=== PATIENT | female | born 1965 | race Two or more races ===

== ENCOUNTER 2018-07-14 08:20 | Emergency (ER) | payer SELFPAY ==
[2018-07-14 09:00] LABS: Absolute Lymphocytes (CBC) 1.7 K/uL (0.7-4.9); Absolute Monocytes 0.5 K/uL (0.1-1.3); Absolute Neutrophil 2.7 K/uL (1.8-8.0); Basophils % 0.8 % (0-1.3); Eosinophils % 7.8 % (0-4.4); Hematocrit 44.1 % (36.0-45.0); Lymphocytes % 31.8 % (15.3-44.8); MCV 90.2 fL (80-100); MPV 8.3 fL (7.6-11.3); Monocytes % 9.2 % (3.3-12.3); RBC Red Blood Cell Count 4.89 M/uL (3.86-4.86)
[2018-07-14 09:09] LABS: ALT/SGPT 22 U/L (12-78); AST/SGOT 12 U/L (15-37); Albumin 3.7 g/dL (3.4-5.0); Alkaline Phosphatase 88 U/L (45-117); BUN Blood Urea Nitrogen 7 mg/dL (7-18); Bicarbonate 28 mmol/L (21-32); Bilirubin Direct 0.1 mg/dL (0-0.2); Bilirubin Total 0.4 mg/dL (0.2-1.0); Glucose Level 126 mg/dL (74-106); Lipase 101 U/L (73-393); Potassium 3.9 mmol/L (3.5-5.1); Protein, Total 7.5 g/dL (6.4-8.2); Sodium Level 140 mmol/L (136-145)
--- NOTE | 2018-07-14 09:57 | RAD REPORT ---
EXAM DESCRIPTION: CTAbdomen Pelvis W Contrast - 07/14/2018 9:40 am CLINICAL HISTORY: Abdominal pain. ABD PAIN COMPARISON: No comparisons TECHNIQUE: Biphasic CT imaging of the abdomen and pelvis was performed with 100 ml non-ionic IV cont rast. All CT scans are performed using dose optimization technique as appropriate and may include automated exposure control or mA/KV adjustment according to patient size. FINDINGS: The lung bases are clear. The liver demonstrates no aggressive mass or biliary dilatation. Two small abutting cysts are present in the posterior right lobe measuring 14 mm in totality. The spleen, pancreas, adrenal glands and ki dneys are within normal limits. Benign appearing left renal cysts are present. No bowel obstruction, free air, free fluid or abscess. The appendix is normal. No evidence of signi ficant lymphadenopathy. Prominent lower lumbar spondylosis. IMPRESSION: No acute intra-abdominal or pelvic finding.
[2018-07-14] MEDS ORDERED: KETOROLAC 30 MG/ML INJ ONE (10:45)
[2018-07-14 11:41] LABS: Urine Bacteria NONE SEEN /HPF (<20); Urine Culture Reflex Order NOT NEEDED; Urine RBC NONE SEEN /HPF (NONE SEEN)
--- NOTE | 2018-07-14 11:47 | EDPHYS ---
Physician Documentation [facility] Name: Beba Griffin Age: 53 yrs Sex: Female : 1965 Arrival Date: 07/14/2018 Time: 08:21 Bed 5 Private MD: None, None ED Physician Michael Cross HPI: 07/14 09:10 This 53 yrs old Female presents to ER via Wheelchair with complaints of Abdominal Pain. pm1 09:10 The patient presents with abdominal pain in the lower abdomen. pm1 09:10 Onset: The symptoms/episode began/occurred 3 month(s) ago, and became worse 1 week(s) pm1 ago. The symptoms do not radiate. Associated signs and symptoms: Pertinent positives: Left lower back pain, Pertinent negatives: nausea, vomiting, and diarrhea, chest pain, dysuria, fever, headache, shortness of breath. Modifying factors: The symptoms are alleviated by nothing, the symptoms are aggravated by nothing. The patient has not recently seen a physician, and does not have an established primary care provider. 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 - Social history:: Smoking status: Patient/guardian denies using tobacco. - Ebola Screening: : No symptoms or risks identified at this time. ROS: 09:10 Constitutional: Negative for fever, chills, and weight loss, Eyes: Negative for injury, pm1 pain, redness, and discharge, ENT: Negative for injury, pain, and discharge, Neck: Negative for injury, pain, and swelling, Cardiovascular: Negative for chest pain, palpitations, and edema, Respiratory: Negative for shortness of breath, cough, wheezing, and pleuritic chest pain. 09:10 : Negative for injury, bleeding, discharge, and swelling, MS/Extremity: Negative for injury and deformity, Skin: Negative for injury, rash, and discoloration, Neuro: Negative for headache, weakness, numbness, tingling, and seizure. 09:10 Abdomen/GI: Positive for abdominal pain, Negative for nausea, vomiting, and diarrhea. 09:10 Back: Positive for of the left low back, Pain, Negative for decreased range of motion. Exam: 09:10 Constitutional: This is a well developed, well nourished patient who is awake, alert, pm1 and in no acute distress. Head/Face: Normocephalic, atraumatic. Eyes: Pupils equal round and reactive to light, extra-ocular motions intact. Lids and lashes normal. Conjunctiva and sclera are non-icteric and not injected. Cornea within normal limits. Periorbital areas with no swelling, redness, or edema. ENT: Nares patent. No nasal discharge, no septal abnormalities noted. Tympanic membranes are normal and external auditory canals are clear. Oropharynx with no redness, swelling, or masses, exudates, or evidence of obstruction, uvula midline. Mucous membranes moist. Neck: Trachea midline, no thyromegaly or masses palpated, and no cervical lymphadenopathy. Supple, full range of motion without nuchal rigidity, or vertebral point tenderness. No Meningismus. Chest/axilla: Normal chest wall appearance and motion. Nontender with no deformity. No lesions are appreciated. Cardiovascular: Regular rate and rhythm with a normal S1 and S2. No gallops, murmurs, or rubs. Normal PMI, no JVD. No pulse deficits. Respiratory: Lungs have equal breath sounds bilaterally, clear to auscultation and percussion. No rales, rhonchi or wheezes noted. No increased work of breathing, no retractions or nasal flaring. 09:10 Back: No spinal tenderness. No costovertebral tenderness. Full range of motion. Skin: Warm, dry with normal turgor. Normal color with no rashes, no lesions, and no evidence of cellulitis. MS/ Extremity: Pulses equal, no cyanosis. Neurovascular intact. Full, normal range of motion. 09:10 Abdomen/GI: Inspection: abdomen appears normal, Bowel sounds: normal, Palpation: soft, in all quadrants, mild abdominal tenderness, in the suprapubic area. 09:10 Neuro: Orientation: is normal, Mentation: appropriate for stated age, Motor: moves all fours. Vital Signs: 08:28 BP 162 / 98; Pulse 64; Resp 19; Temp 97.6; Pulse Ox 96% ; Pain 8/10; sv 09:18 BP 162 / 82; Pulse 58; Resp 18; Pulse Ox 97% ; sv 09:54 BP 161 / 75; Pulse 57; Resp 18; Pulse Ox 99% ; sv 10:45 BP 166 / 84; Pulse 52; Resp 16; Pulse Ox 98% ; sv 11:22 BP 172 / 99; Pulse 76; Resp 16; Pulse Ox 97% ; sv MDM: 08:28 Patient medically screened. pm1 11:46 Data reviewed: vital signs. Data interpreted: Pulse oximetry: on room air is 97 %. pm1 Interpretation: normal. Counseling: I had a detailed discussion with the patient and/or guardian regarding: the historical points, exam findings, and any diagnostic results supporting the discharge/admit diagnosis, lab results, radiology results, the need for outpatient follow up, to return to the emergency department if symptoms worsen or persist or if there are any questions or concerns that arise at home. 07/14 08:34 Order name: Basic Metabolic Panel; Complete Time: 09:15 pm07/14 08:34 Order name: CBC with Diff; Complete Time: 09:15 pm07/14 08:34 Order name: Hepatic Function; Complete Time: 09:15 pm07/14 08:34 Order name: Lipase; Complete Time: 09:15 pm07/14 10:38 Order name: Urine Microscopic Only; Complete Time: 11:46 pm07/14 10:51 Order name: Urine Dipstick--Ancillary (enter results) bd 07/14 08:34 Order name: IV Saline Lock; Complete Time: 08:44 pm1 07/14 08:34 Order name: Labs collected and sent; Complete Time: 08:44 pm1 07/14 08:34 Order name: CT Abd/Pelvis - W/Contrast: IV contrast only; Complete Time: 10:07 pm1 07/14 08:34 Order name: Urine Dipstick-Ancillary (obtain specimen); Complete Time: 08:35 pm1 07/14 08:34 Order name: Urine Test (obtain specimen); Complete Time: 08:35 pm1 Administered Medications: 10:43 Drug: TORadol 30 mg Route: IVP; Site: right antecubital; sv 11:00 Follow up: Response: No adverse reaction sv Disposition: 17:35 Co-signature as Attending Physician, Michael Cross MD. rn Disposition: 07/14/18 11:46 Discharged to Home. Impression: Unspecified abdominal pain. - Condition is Stable. - Discharge Instructions: Abdominal Pain, Adult. - Prescriptions for Bentyl 20 mg Oral Tablet - take 1 tablet by ORAL route every 6 hours As needed; 20 tablet. - Medication Reconciliation Form, Thank You Letter, Antibiotic Education, Prescription Opioid Use form. - Follow up: Emergency Department; When: As needed; Reason: Worsening of condition. Follow up: Private Physician; When: 2 - 3 days; Reason: Recheck today's complaints, Continuance of care, Re-evaluation by your physician. - Problem is new. - Symptoms have improved. Signatures: Dispatcher [employer] Marta Estrada, RN RN Michael Zhang MD MD rn Marinas, Patrick, JS DIRT SUPERVISOR pm1 Beata Jimenez RN RN hb Corrections: (The following items were deleted from the chart) 12:46 11:46 07/14/2018 11:46 Discharged to Home. Impression: Unspecified abdominal pain. hb Condition is Stable. Discharge Instructions: Abdominal Pain, Adult. Prescriptions for Bentyl 20 mg Oral Tablet - take 1 tablet by ORAL route every 6 hours As needed; 20 tablet. and Forms are Medication Reconciliation Form, Thank You Letter, Antibiotic Education, Prescription Opioid Use. Follow up: Emergency Department; When: As needed; Reason: Worsening of condition. Follow up: Private Physician; When: 2 - 3 days; Reason: Recheck today's complaints, Continuance of care, Re-evaluation by your physician. Problem is new. Symptoms have improved. pm1
--- NOTE | 2018-07-14 11:47 | ER ---
Nurse's Notes [facility] Name: Beba Griffin Age: 53 yrs Sex: Female : 1965 Arrival Date: 07/14/2018 Time: 08:21 Bed 5 Private MD: None, None Diagnosis: Unspecified abdominal pain Presentation: 07/14 08:28 Presenting complaint: Patient states: Lower abdominal pain x 1 month, pain radiates to hb left low back x 1 week. Transition of care: patient was not received from another setting of care. Onset of symptoms was July 14, 2018. Risk Assessment: Do you want to hurt yourself or someone else? Patient reports no desire to harm self or others. Care prior to arrival: None. 08:28 Method Of Arrival: Wheelchair hb 08:28 Acuity: PALLAVI 3 hb 08:32 Initial Sepsis Screen: Does the patient meet any 2 criteria? No. Patient's initial sv sepsis screen is negative. Does the patient have a suspected source of infection? No. Patient's initial sepsis screen is negative. Triage Assessment: 08:30 General: Appears in no apparent distress. uncomfortable, Behavior is calm, cooperative, sv appropriate for age. Pain: Complains of pain in suprapubic area, right lower quadrant and left lower quadrant Pain radiates to left low back Pain currently is 8 out of 10 on a pain scale. Pain began "months ago". EENT: No signs and/or symptoms were reported regarding the EENT system. Neuro: Level of Consciousness is awake, alert, obeys commands, Oriented to person, place, time, situation, Moves all extremities. Full function Gait is steady, Speech is normal. Respiratory: Respiratory effort is even, unlabored, Respiratory pattern is regular, symmetrical. GI: Abdomen is flat, Reports lower abdominal pain. : Denies burning with urination. Derm: Skin is pink, warm \\T\\ dry. Musculoskeletal: No signs and/or symptoms reported regarding the musculoskeletal system. 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 - Social history:: Smoking status: Patient/guardian denies using tobacco. - Ebola Screening: : No symptoms or risks identified at this time. Screenin:28 Abuse screen: Denies threats or abuse. Denies injuries from another. Nutritional sv screening: No deficits noted. Tuberculosis screening: No symptoms or risk factors identified. Fall Risk None identified. Assessment: 09:45 Reassessment: Patient appears in no apparent distress at this time. No changes from sv previously documented assessment. Patient and/or family updated on plan of care and expected duration. Pain level reassessed. Patient is alert, oriented x 3, equal unlabored respirations, skin warm/dry/pink. 10:45 Reassessment: Patient appears in no apparent distress at this time. No changes from sv previously documented assessment. Patient and/or family updated on plan of care and expected duration. Pain level reassessed. Patient is alert, oriented x 3, equal unlabored respirations, skin warm/dry/pink. Vital Signs: 08:28 BP 162 / 98; Pulse 64; Resp 19; Temp 97.6; Pulse Ox 96% ; Pain 8/10; sv 09:18 BP 162 / 82; Pulse 58; Resp 18; Pulse Ox 97% ; sv 09:54 BP 161 / 75; Pulse 57; Resp 18; Pulse Ox 99% ; sv 10:45 BP 166 / 84; Pulse 52; Resp 16; Pulse Ox 98% ; sv 11:22 BP 172 / 99; Pulse 76; Resp 16; Pulse Ox 97% ; sv ED Course: 08:21 Patient arrived in ED. sb2 08:21 None, None is Private Physician. sb2 08:24 Bobby Tracy NP is PHCP. pm1 08:24 Michael Cross MD is Attending Physician. pm1 08:28 Marta Ken, MEENAKSHI is Primary Nurse. sv 08:28 Arm band placed on right wrist. sv 08:28 Patient has correct armband on for positive identification. Placed in gown. Bed in low sv position. Adult w/ patient. Pulse ox on. NIBP on. Door closed. Head of bed elevated. 08:29 Triage completed. hb 08:39 Initial lab(s) drawn, by me, sent to lab. Inserted saline lock: 20 gauge in right dh3 antecubital area, using aseptic technique. Blood collected. 09:[address] Scan. sv 09:[address] via wheelchair. sj 09:40 CT Abd/Pelvis - W/Contrast: IV contrast only In Process Unspecified. EDMS 09:[address]. sv 09:46 Inserted saline lock: 22 gauge in left ,using aseptic technique. done by Annette in [place]. sv 10:42 Urine collected: clean catch specimen, clear. dh3 12:45 No provider procedures requiring assistance completed. IV discontinued, intact, hb bleeding controlled, No redness/swelling at site. Pressure dressing applied. Administered Medications: 10:43 Drug: TORadol 30 mg Route: IVP; Site: right antecubital; sv 11:00 Follow up: Response: No adverse reaction sv Outcome: 11:46 Discharge ordered by . pm1 12:45 Discharged to home ambulatory. hb 12:45 Condition: stable 12:45 Discharge instructions given to patient, Instructed on discharge instructions, follow up and referral plans. medication usage, Demonstrated understanding of instructions, follow-up care, medications, Prescriptions given X 1. 12:46 Patient left the ED. Signatures: Dispatcher [employer] EDDC Marta Ken RN RN Annette Eubanks Bobby Tracy, PURCHASING COORDINATOR PURCHASING COORDINATOR pm1 Beata Jimenez RN RN Lainey De Anda 3 Melina Jeffers sb2 Corrections: (The following items were deleted from the chart) 08:32 08:30 Pain: Complains of pain in suprapubic area, right lower quadrant and left lower sv quadrant Pain currently is 8 out of 10 on a pain scale. sv
[2018-07-14 12:49] LABS: Urine Blood NEGATIVE (NEG); Urine Glucose NEGATIVE (NEG); Urine Protein NEGATIVE (NEG)
== END 2018-07-14 12:46 | disposition home or self-care (01) ==
LOC: ER 08:20
DX: R10.30 Lower abdominal pain, unspecified (principal)
CPT/HCPCS: 36415; 74177; 80048; 80076; 81003; 81015; 83690; 85025; Q9967

== ENCOUNTER 2019-09-04 00:31 | Emergency (ER) | payer SELFPAY ==
--- OUTSIDE RECORDS SUMMARY | 2019-09-04 00:33 | XMS REPORT | Summary of Care ---
:1965 Author Organization [facility] Address [address] [place] [id number] Care Team Providers Name Role Phone Pcp, Patient Does Not Have A Primary Care Provider Reason for Visit Reason Comments Anxiety Suicidal ideation Auth/Cert Status Reason Specialty Diagnoses / Referred By Referred To Procedures Contact Contact [facility] [address] [place] [address] [place] [address] Encounter Details Date Type Department Care Team Description 06/01/2019 Emergency [facility]Emergency Radha Garcia, CLINICAL TEAM LEAD [address] [place] [address]. [place] [id number] Situational mixed Department Ta Wilkinson DO [address] [place] [address]. [address] [place], [place] [id number] anxiety and depressive [address] disorder (Primary Dx) [place], [place] [id number] Allergies No Known Allergiesdocumented as of this encounter (statuses as of 06/01/2019) Medications Medication Sig Dispensed Refills Start Date End Date Status traMADOL (ULTRAM) 50 Take 1 tablet by 20 tablet 0 07/13/2018 Active mg tablet mouth every 6 (six) hours as needed for Pain (scale 7-10). ondansetron (ZOFRAN) Take 1 tablet by 12 tablet 0 07/13/2018 Active 4 mg tablet mouth every 8 (eight) hours as needed for Nausea and Vomiting (N/V). SERTraline 25 mg Take 1 tablet by 30 tablet 0 03/28/2019 Active tabletIndications: mouth daily. Suicidal ideation hydrOXYzine 50 mg Take 1 tablet by 20 tablet 0 03/28/2019 Active tabletIndications: mouth every 6 Suicidal ideation (six) hours as needed for Anxiety. SERTRALINE 50 MG 1 Tab Oral DAILY 28 0 09/16/2005 Suspended ORAL TAB TRAZODONE 50 MG ORAL 1 Tab Oral at 30 0 09/16/2005 Suspended TAB bedtime as needed for insomnia documented as of this encounter (statuses as of 06/01/2019) Active Problems Problem Noted Date Major depressive disorder, recurrent episode, moderate 09/16/2005 Cocaine dependence, episodic 09/16/2005 documented as of this encounter (statuses as of 06/01/2019) Social History Tobacco Use Types Packs/Day Years Used Date Never Assessed Sex Assigned at Date Recorded Not on file Job Start Date Occupation Industry Not on file Not on file Not on file Travel History Travel Start Travel End No recent travel history available. documented as of this encounter Last Filed Vital Signs Vital Sign Reading Time Taken Comments Blood Pressure 138/96 06/01/2019 2:13 PM CDT Pulse 85 06/01/2019 2:13 PM CDT Temperature 37.1 C (98.7 F) 06/01/2019 3:14 PM CDT Respiratory Rate 18 06/01/2019 3:14 PM CDT Oxygen Saturation 97% 06/01/2019 3:14 PM CDT Inhaled Oxygen Concentration - - Weight 77.1 kg (170 lb) 06/01/2019 2:13 PM CDT Height 167.6 cm (5' 6") 06/01/2019 2:13 PM CDT Body Mass Index 27.44 06/01/2019 2:13 PM CDT documented in this encounter Discharge Instructions Ta Norton DO - 06/01/2019 DIAGNOSIS Diagnoses that have been ruled out: None Diagnoses that are still under consideration: None Final diagnoses: Situational mixed anxiety and depressive disorder NO LIFE-THREATENING FINDINGS ON TODAY'S EXAM. PROCEDURES IN THE ER TODAY: No orders of the defined types were placed in this encounter. MEDICATIONS ADMINISTERED IN THE ER TODAY AND DISCHARGE MEDICATIONS: No orders of the defined types were placed in this encounter. FOLLOW-UP RECOMMENDATIONS: RECOMMEND FOLLOW-UP WITH A PRIMARY CARE PROVIDER OR SPECIALIST IN 2-5 DAYS, ESPECIALLY IF NO IMPROVEMENT IN SYMPTOMS. MAY FOLLOW-UP WITH A PROVIDER OF YOUR CHOICE, SUCH : 1. A PHYSICIAN OF YOUR CHOICE 2. [facility], . LOCATIONS IN [facility] 3. [facility], [address], [place]; [phone] OR, IF YOU WISH TO FOLLOW-UP WITHIN THE [facility], MAY TRY THESE OPTIONS (CLINIC APPOINTMENTS AVAILABLE ON [id number] BASIS): 1. SCHEDULE AN APPOINTMENT ONLINE AT [email or web address] 2. OR CALL THE [facility] AT OR 3. OR CALL YOUR [facility] PHYSICIAN'S OFFICE DIRECTLY IF YOU ARE ALREADY AN ESTABLISHED [facility] PATIENT. RETURN TO ER FOR WORSENING OF SYMPTOMS. AttachmentsThe following attachments cannot be sent through Care Everywhere.Anxiety, Your Body's Response to (Wallisian)documented in this encounter Plan of Treatment Health Maintenance Due Date Last Done Comments HEPATITIS C (HCV) SCREEN 1965 DTaP,Tdap,and Td Vaccines (1 - 1982 Tdap) PAP SMEAR 1984 MAMMOGRAM 2003 COLONOSCOPY 2013 Zoster Recombinant Vaccine 2013 (SHINGRIX) (1 of 2) INFLUENZA VACCINE 06/19/2019 PNEUMOCOCCAL 0-64 YEARS COMBINED Aged Out No longer eligible based on SERIES patient's age to complete this topic documented as of this encounter Procedures Procedure Name Priority Date/Time Associated Diagnosis Comments NOTICE OF PRIVACY Routine 06/01/2019 1:54 PM CDT PRACTICES NOTICE OF PRIVACY Routine 06/01/2019 1:54 PM CDT PRACTICES CONSENT/REFUSAL FOR Routine 06/01/2019 1:53 PM CDT DIAGNOSIS AND TREATMENT documented in this encounter Results Not on filedocumented in this encounter Visit Diagnoses Diagnosis Situational mixed anxiety and depressive disorder - Primary Adjustment disorder with mixed anxiety and depressed mood documented in this encounter
--- OUTSIDE RECORDS SUMMARY | 2019-09-04 00:33 | XMS REPORT ---
:1965 [facility] Address [address] [place] [address] Care Team Providers Name Role Phone Unavailable Unavailable Unavailable Problems This patient has no known problems. Allergies, Adverse Reactions, Alerts This patient has no known allergies or adverse reactions. Medications This patient has no known medications.
[2019-09-04 01:07] LABS: Absolute Lymphocytes (CBC) 1.5 K/uL (0.7-4.9); Basophils % 0.7 % (0-1.3); Hematocrit 38.6 % (36.0-45.0); Lymphocytes % 26.8 % (15.3-44.8); MPV 7.9 fL (7.6-11.3); RBC Red Blood Cell Count 4.17 M/uL (3.86-4.86)
[2019-09-04 01:24] LABS: BUN Blood Urea Nitrogen 9 mg/dL (7-18); Bicarbonate 25 mmol/L (21-32); Glucose Level 139 mg/dL (74-106); Potassium 3.7 mmol/L (3.5-5.1); Sodium Level 141 mmol/L (136-145); Troponin (Emerg Dept Use Only) < 0.02 ng/mL (0.0-0.045)
--- NOTE | 2019-09-04 02:04 | ER ---
Nurse's Notes [facility] Name: Beba Griffin Age: 54 yrs Sex: Female : 1965 Arrival Date: 09/04/2019 Time: 00:33 Bed 3 Private MD: Diagnosis: Adverse effect of unspecified psychostimulants Presentation: 09/04 00:27 Presenting complaint: Patient states: Pt was having an anxiety attack after smoking jb4 crack. Pt reportedly smokes on a weekly to a daily basis. 00:27 Transition of care: patient was not received from another setting of care. Onset of jb4 symptoms was September 04, 2019. Risk Assessment: Do you want to hurt yourself or someone else? Patient reports no desire to harm self or others. Initial Sepsis Screen: Does the patient meet any 2 criteria? HR > 90 bpm. Yes Does the patient have a suspected source of infection? No. Patient's initial sepsis screen is negative. Care prior to arrival: None. 00:27 Method Of Arrival: EMS: [facility] jb4 00:27 Acuity: PALLAVI 2 jb4 Historical: - Allergies: 00:27 No Known Allergies; jb4 - Home Meds: 00:27 Hydroxyzine Oral [Active]; Trazodone Oral [Active]; jb4 - PMHx: 00:27 Bipolar disorder; Depression; jb4 - PSHx: 00:27 ; jb4 - Immunization history:: Adult Immunizations up to date. - Social history:: Smoking status: Patient uses tobacco products, Patient uses alcohol, occasionally. street drugs, cocaine, marijuana. - Family history:: not pertinent. - Ebola Screening: : No symptoms or risks identified at this time. - Hospitalizations: : No recent hospitalization is reported. Screenin:43 Abuse screen: Denies threats or abuse. Nutritional screening: No deficits noted. jb4 Tuberculosis screening: No symptoms or risk factors identified. Fall Risk None identified. Assessment: 00:43 General: Appears in no apparent distress. comfortable, Behavior is calm, cooperative. jb4 Pain: Denies pain. Neuro: Level of Consciousness is awake, alert, obeys commands, Oriented to person, place, time, situation. Cardiovascular: Patient's skin is warm and dry. Respiratory: Airway is patent Respiratory effort is even, unlabored, Respiratory pattern is regular, symmetrical. GI: No deficits noted. No signs and/or symptoms were reported involving the gastrointestinal system. : No deficits noted. No signs and/or symptoms were reported regarding the genitourinary system. EENT: No deficits noted. No signs and/or symptoms were reported regarding the EENT system. Derm: Skin is intact, Skin is pink, warm \T\ dry. Musculoskeletal: Circulation, motion, and sensation intact. Range of motion: intact in all extremities. 01:30 Reassessment: Patient appears in no apparent distress at this time. Patient and/or jb4 family updated on plan of care and expected duration. Pain level reassessed. Patient is alert, oriented x 3, equal unlabored respirations, skin warm/dry/pink. 02:08 Reassessment: Patient appears in no apparent distress at this time. pt resting with ak1 eyes closed, resp even and unlabored. at bedside. 02:36 Reassessment: Patient appears in no apparent distress at this time. Patient and/or jb4 family updated on plan of care and expected duration. Pain level reassessed. Patient is alert, oriented x 3, equal unlabored respirations, skin warm/dry/pink. PT verbalized understanding of d/c and follow up instructions. Vital Signs: 00:27 BP 115 / 76; Pulse 94; Resp 18; Temp 99.1(O); Pulse Ox 96% on R/A; Weight 72.57 kg (R); jb4 Height 5 ft. 6 in. (167.64 cm) (R); Pain 0/10; 01:30 BP 98 / 64; Pulse 70; Resp 16; Pulse Ox 97% on R/A; jb4 02:08 BP 92 / 62; Pulse 72; Resp 16; Pulse Ox 96% on R/A; ak1 02:37 BP 110 / 57; Pulse 87; Resp 16; Pulse Ox 98% on R/A; jb4 00:27 Body Mass Index 25.82 (72.57 kg, 167.64 cm) jb4 ED Course: 00:27 Arm band placed on right wrist. jb4 00:33 Patient arrived in ED. ds1 00:33 Fady Aaron RN is Primary Nurse. jb4 00:35 Michael Cross MD is Attending Physician. rn 00:39 Triage completed. jb4 00:43 Patient has correct armband on for positive identification. Placed in gown. Bed in low jb4 position. Call light in reach. Side rails up X2. ekg monitor tech on. Pulse ox on. NIBP on. 00:55 XRAY Chest (1 view) In Process Unspecified. EDMS 02:37 No provider procedures requiring assistance completed. IV discontinued, intact, jb4 bleeding controlled, No redness/swelling at site. Pressure dressing applied. Administered Medications: No medications were administered Outcome: 02:03 Discharge ordered by . rn 02:37 Discharged to home via wheelchair, with family. jb4 02:37 Condition: stable 02:37 Discharge instructions given to patient, Instructed on discharge instructions, follow up and referral plans. Demonstrated understanding of instructions, follow-up care. 02:37 Patient left the ED. jb4 Signatures: Dispatcher [employer] EDME Avelina Reyes ds1 Michael Cross MD MD rn Krenek, Amber, RN RN ak1 Fady Aaron, RN RN jb4
--- NOTE | 2019-09-04 02:04 | EDPHYS ---
Physician Documentation [facility] Name: Beba Griffin Age: 54 yrs Sex: Female : 1965 Arrival Date: 09/04/2019 Time: 00:33 Bed 3 Private MD: ED Physician Michael Cross HPI: 09/04 00:38 This 54 yrs old Female presents to ER via Unassigned with complaints of Overdose, rn Anxiety. 00:39 The patient presents with a history of heart racing. Onset: The symptoms/episode rn began/occurred just prior to arrival. Duration: The patient or guardian reports a single episode. Modifying factors: The symptoms are aggravated by substance abuse The symptoms are alleviated by ativan. Severity of symptoms: At their worst the symptoms were moderate in the emergency department the symptoms have resolved. The patient has not experienced similar symptoms in the past. Reports smoking crack [employer], felt instant palpitations, anxiety, denies this happening before with crack, is chronic user in addition to meth and marijuana in past. Denies other drugs. Denies chest pain/sob. Given ativan 2mg with resolution of symptoms. . Historical: - Allergies: 00:27 No Known Allergies; jb4 - Home Meds: 00:27 Hydroxyzine Oral [Active]; Trazodone Oral [Active]; jb4 - PMHx: 00:27 Bipolar disorder; Depression; jb4 - PSHx: 00:27 ; jb4 - Immunization history:: Adult Immunizations up to date. - Social history:: Smoking status: Patient uses tobacco products, Patient uses alcohol, occasionally. street drugs, cocaine, marijuana. - Family history:: not pertinent. - Ebola Screening: : No symptoms or risks identified at this time. - Hospitalizations: : No recent hospitalization is reported. ROS: 00:39 Constitutional: Negative for fever, chills, and weight loss, Eyes: Negative for injury, rn pain, redness, and discharge, Neck: Negative for injury, pain, and swelling, Cardiovascular: Negative for chest pain, and edema, Respiratory: Negative for shortness of breath, cough, wheezing, and pleuritic chest pain, Abdomen/GI: Negative for abdominal pain, nausea, vomiting, diarrhea, and constipation, MS/Extremity: Negative for injury and deformity, Skin: Negative for injury, rash, and discoloration, Neuro: Negative for headache, weakness, numbness, tingling, and seizure. Exam: 00:39 Constitutional: This is a well developed, well nourished patient who is awake, alert, rn and in no acute distress. Scratching at arms. Head/Face: Normocephalic, atraumatic. Eyes: Pupils equal round and reactive to light, extra-ocular motions intact. Lids and lashes normal. Conjunctiva and sclera are non-icteric and not injected. Cornea within normal limits. Periorbital areas with no swelling, redness, or edema. ENT: dry MM Cardiovascular: Regular rate and rhythm. No pulse deficits. Respiratory: No increased work of breathing, no retractions or nasal flaring. Abdomen/GI: soft, non-tender Skin: Warm, dry, and no evidence of cellulitis. MS/ Extremity: Pulses equal, no cyanosis. Neurovascular intact. Full, normal range of motion. Equal circumference. Neuro: Awake and alert, GCS 15, oriented to person, place, time, and situation. Cranial nerves II-XII grossly intact. Motor strength 5/5 in all extremities. Sensory grossly intact. Cerebellar exam normal. 01:36 ECG was reviewed by the Attending Physician. rn Vital Signs: 00:27 BP 115 / 76; Pulse 94; Resp 18; Temp 99.1(O); Pulse Ox 96% on R/A; Weight 72.57 kg (R); jb4 Height 5 ft. 6 in. (167.64 cm) (R); Pain 0/10; 01:30 BP 98 / 64; Pulse 70; Resp 16; Pulse Ox 97% on R/A; jb4 02:08 BP 92 / 62; Pulse 72; Resp 16; Pulse Ox 96% on R/A; ak1 02:37 BP 110 / 57; Pulse 87; Resp 16; Pulse Ox 98% on R/A; jb4 00:27 Body Mass Index 25.82 (72.57 kg, 167.64 cm) jb4 MDM: 00:36 Patient medically screened. rn 02:01 Differential diagnosis: arrythmia, dehydration, stress disorder, drug adverse effect. rn Data reviewed: vital signs, nurses notes, lab test result(s), EKG, radiologic studies, plain films, and as a result, I will discharge patient. Test interpretation: by ED physician or midlevel provider: ECG, plain radiologic studies, CXR neg for acute infiltrate/pneumothorax. Counseling: I had a detailed discussion with the patient and/or guardian regarding: the historical points, exam findings, and any diagnostic results supporting the discharge/admit diagnosis, lab results, radiology results, the need for outpatient follow up, to return to the emergency department if symptoms worsen or persist or if there are any questions or concerns that arise at home. Response to treatment: the patient's symptoms have markedly improved after treatment, the patient's condition has returned to base line, the patient is now symptom free, patient is well hydrated. and as a result, I will discharge patient. Special discussion: I discussed with the patient/guardian in detail that at this point there is no indication for admission to the hospital. It is understood, however, that if the symptoms persist or worsen the patient needs to return immediately for re-evaluation. 02:01 ED course: Counseled regarding drug cessation and pcp f/u. . rn 09/04 00:37 Order name: CBC with Diff; Complete Time: rn 09/04 00:37 Order name: Basic Metabolic Panel; Complete Time: rn 09/04 00:37 Order name: IV Start; Complete Time: 00:50 rn 09/04 00:37 Order name: EKG; Complete Time: 00:38 rn 09/04 00:37 Order name: Troponin (emerg Dept Use Only); Complete Time: rn 09/04 00:37 Order name: XRAY Chest (1 view) rn 09/04 00:37 Order name: EKG - Nurse/Tech; Complete Time: : rn EC:36 Rate is 86 beats/min. Rhythm is regular. QRS [place] is Normal. MS interval is normal. QRS rn interval is normal. QT interval is normal. No Q waves. T waves are Normal. No ST changes noted. Clinical impression: Normal ECG. Interpreted by me. Reviewed by me. Administered Medications: No medications were administered Disposition: 09/04/19 02:03 Discharged to Home. Impression: Adverse effect of unspecified psychostimulants. - Condition is Stable. - Discharge Instructions: Stimulant Use Disorder-Cocaine, Stimulant Use Disorder-Methamphetamines. - Medication Reconciliation Form, Thank You Letter, Antibiotic Education, Prescription Opioid Use form. - Follow up: Private Physician; When: As needed; Reason: Recheck today's complaints, Re-evaluation by your physician. - Problem is new. - Symptoms have improved. Signatures: Dispatcher [employer] EDMichael Griffin MD MD rn Bryson, James, RN RN jb4 Corrections: (The following items were deleted from the chart) 02:37 02:03 09/04/2019 02:03 Discharged to Home. Impression: Adverse effect of unspecified jb4 psychostimulants. Condition is Stable. Forms are Medication Reconciliation Form, Thank You Letter, Antibiotic Education, Prescription Opioid Use. Follow up: Private Physician; When: As needed; Reason: Recheck today's complaints, Re-evaluation by your physician. Problem is new. Symptoms have improved. rn
[2019-09-04 02:44] VITALS: BP 110/57; O2SAT 98
--- NOTE | 2019-09-04 08:11 | RAD REPORT ---
EXAM DESCRIPTION: RAD - Chest Single View - 09/04/2019 12:56 am CLINICAL HISTORY: Palpitations COMPARISON: None. TECHNIQUE: AP portable chest image was obtained 0053 hours . FINDINGS: Lungs are clear. Heart and vasculature are normal. No measurable pleural effusion and no p neumothorax. No acute bony abnormality seen. No acute aortic findings suspected. IMPRESSION: No acute cardiopulmonary process.
--- NOTE | 2019-09-04 10:01 | EKG ---
Test Date: 2019-09-04 Test Time: 00:56:57 Manager Medical Writing: DARYL MEASUREMENT RESULTS: Intervals: Rate: 86 UT: 176 QRSD: 80 QT: 402 QTc: 481 [place]: P: 22 UT: 176 QRS: -13 T: 7 INTERPRETIVE STATEMENTS: Normal sinus rhythm Normal ECG No previous ECG available for comparison Electronically Signed On 09-04-19 10:00:44 RADIOLOGY SPECIAL PROCEDURE TECH by Corbin Marquis
== END 2019-09-04 02:37 | disposition home or self-care (01) ==
LOC: ER 00:31
DX: F15.980 Other stimulant use, unspecified with stimulant-induced anxiety disorder (principal); T40.5X5A Adverse effect of cocaine, initial encounter; Y92.9 Unspecified place or not applicable; F32.9 Major depressive disorder, single episode, unspecified
CPT/HCPCS: 36415; 71045; 80048; 84484; 85025; 93005; 99284

== ENCOUNTER → 2023-11-12 | Emergency (ER) | payer SELFPAY ==
[~2023-11-12] MED LIST: FLUORESCEIN SODIUM 1 MG/WRAP ONE; HYDROCODONE/APAP 10/325 TAB ONE; TETRACAINE HCL 0.5% 4ML OPTH ONE
--- OUTSIDE RECORDS SUMMARY | 2023-11-12 12:03 | XMS REPORT | Continuity of Care Document ---
Author Name Unknown Address [address] [facility] [address] [place] [address] [facility] Address [address] [facility] [address] [place] [address] Care Team Providers Care Javascript Web Developer Name Role Phone None, None Primary Care Physician [phone] CLARI BORJA Attending Clinician Unavailable ANNE MULLINS Attending Clinician Unavailable PER LUU Attending Clinician Unava ilable Vi Mosley Attending Clinician BEATRIZ ARGUELLO Attending Clinician Unavailable Beatriz Fairchild Attending Clinician [phone] PRISCILA JASMINE Attending Clinician Unavailable Priscila Jasmine MD Attending Clinician [phone] Radha Gongora Attending Clinician [phone] Ta Wilkinson DO Attending Clinician [phone] Vi Mosley Admitting Clinician BEATRIZ ARGUELLO Admitting Clinician Unavailable Payers Payer Name Policy Type Policy Number Effective Date Expirati on Date Source MEDICAID SSI PENDING PENDING 2022 00:00:00 Problems Condition Name Condition Details Condition Category Status Onset Date Resolution Date Last Treatment Date Treating Clinician Comments Source AUTO PED AUTO PED Active 02/03/2023 [facility] Diagnosis Active 02-03 00:00: 00 2023-08-14 16:51:00 Carlyn Espinal LIFE FLIGHT LIFE FLIGHT Active 02/03/2023 [facility] Diagnosis Active 02-03 00:00: 00 2023-08-20 11:15:00 Carlyn Espinal Major depressive disorder, recurrent episode, moderate Major depressive disorder, recurrent episode, moderate Disease Active 2004-10 00:00: 00 [facility] Cocaine dependence , episodic Cocaine dependence , episodic Disease Active 2004-10 00:00: 00 [facility] Nondepende nt cannabis abuse, episodic (disorder) Nondepende nt cannabis abuse, episodic (disorder) Active Problem 02/13/2023 [facility] Problem Active 2023-02-13 04:44:43 Carlyn Espinal UNSPECIFIE D MULTIPLE INJURIES, INITIAL E UNSPECIFIE D MULTIPLE INJURIES, INITIAL E Active [facility] Diagnosis Active 2023-08-14 16:51:00 Carlyn Espinal Allergies, Adverse Reactions, Alerts Allergy Name Allergy Type Status Severity Reaction(s) Onset Date Inactive Date Treating Clinician Comments Source No Known Medicati on Allergie s No Known Medicati on Allergie s Active Carlyn Espinal NO KNOWN ALLERGIE S Drug Class Active [facility] Social History Social Habit Start Date Stop Date Quantity Comments Source History of tobacco use Cigarette Smoker [facility] Exposure to SARS-CoV-2 (event) 2023-02-23 00:00:00 2023-03-05 11:23:00 Not sure [facility] Cigarettes smoked current (pack per day) - Reported 2023-03-05 00:00:00 2023-03-05 00:00:00 [facility] Tobacco use and exposure 2023-03-05 00:00:00 2023-03-05 00:00:00 Smokeless tobacco non-user [facility] Alcohol intake 2023-03-05 00:00:00 2023-03-05 00:00:00 Lifetime non-drinker (finding) [facility] Sex Assigned At 1965 00:00:00 1965 00:00:00 [facility] Smoking Status Start Date Stop Date Source Tobacco smoking status 2023-02-04 11:38:00 [facility] Tobacco smoking consumption unknown [facility] Medications Ordered Medication Name Filled Medication Name Start Date Stop Date Current Medication? Ordering Clinician Indication Dosage Frequency Signature (SIG) Comments Components Source citalopram 20 mg oral tablet 02-10 20:27: 00 Yes 20 mg = 1 tab, PO, Daily, # 30 tab, 0 Refill(s), Pharmacy: [facility] [id number], 167.64, cm, 02/04/23 6:33:00 CDT, Height, 65.6, kg, 02/04/23 6:33:00 CDT, Weight Memoria sara Tedyd docusate-se nna 50 mg-8.6 mg oral tablet 02-10 20:27: 00 Yes 1 tab, PO, Daily, X 14 day, # 14 tab, 0 Refill(s), Pharmacy: [facility] [id number], 167.64, cm, 02/04/23 6:33:00 CDT, Height, 65.6, kg, 02/04/23 6:33:00 CDT, Weight Memoria sara Espinal enoxaparin 30 mg/0.3 mL subcutaneou s solution 02-10 20:27: 00 Yes /= 30 mL/min), # 28 stick, 0 Refill(s), Pharmacy: [facility] [id number], 167.64, cm, 02/04/23 6:33:00 CDT, Height, 65.6, kg, 02/04/23 6:33:00 CDT, Weight Memoria sara Espinal gabapentin 300 mg oral capsule 02-10 20:27: 00 Yes 300 mg = 1 cap, PO, Q8H-06, # 42 cap, 0 Refill(s), Pharmacy: [facility] [id number], 167.64, cm, 02/04/23 6:33:00 CDT, Height, 65.6, kg, 02/04/23 6:33:00 CDT, Weight [facility] l [facility] lidocaine 4% topical film 02-10 20:27: 00 Yes 1 patch, TOP, Daily, do not leave patch on for more than 8 hours at a time, X 14 day, # 14 patch, 0 Refill(s), Pharmacy: [facility] [id number], 167.64, cm, 02/04/23 6:33:00 CDT, Height, 65.6, kg, 02/04/23 6:33:00 CDT, Weight Memoria sara Espinal methocarbam ol 500 mg oral tablet 02-10 20:27: 00 Yes 1,000 mg = 2 tab, PO, Q6H, X 14 day, # 112 tab, 0 Refill(s), Pharmacy: [facility] [id number], 167.64, cm, 02/04/23 6:33:00 CDT, Height, 65.6, kg, 02/04/23 6:33:00 CDT, Weight [facility] [place] tramadol 50 mg oral tablet 02-10 20:27: 00 Yes 50 mg = 1 tab, PO, Q8H, PRN Pain Score 7-10, not to exceed 400 mg/day, X 7 day, # 28 tab, 0 Refill(s), Pharmacy: [facility] [id number], 167.64, cm, 02/04/23 6:33:00 CDT, Height, 65.6, kg, 02/04/23 6:33:00 CDT, Weight Memoria sara Espinal acetaminoph en 500 mg oral tablet. 02-10 20:27: 00 Yes 1 gm = 2 tab, PO, Q6H, not to exceed 4000 mg/day, X 14 day, # 112 tab, 0 Refill(s), Pharmacy: [facility] [id number], 167.64, cm, 02/04/23 6:33:00 CDT, Height, 65.6, kg, 02/04/23 6:33:00 CDT, Weight Memoria sara Espinal bisacodyl 02-08 13:01: 00 No Notes: (Same As: Dulcolax, Bisco-Lax) Memoria sara Espinal hydrALAZINE 02-08 11:16: 00 Yes Notes: (Same as: Apresoline ) Push over 5 minutes [facility] [place] melatonin 02-08 02:00: 00 Yes Notes: (Same as: Melatonin) Carlyn Espinal guaiFENesin 02-07 14:00: 00 Yes Notes: ( Carlyn Espinal melatonin 02-07 13:01: 00 No 6 mg, Route: PO, Bedtime, Dosing Weight 65.6, kg, PRN Sleep, Start date: 02/07/23 8:01:00 CDT, Duration: 30 day, Stop date: 03/09/23 8:00:00 CDT Carlyn Espinal DuoNeb inhalation solution 02-07 13:00: 00 Yes Notes: (Same as: Duoneb) Carlyn Espinal gabapentin 02-07 11:00: 00 Yes Notes: (Same as: Neurontin) Carlyn Espinal hydrOXYzine 02-06 14:00: 00 No 25 mg, Route: PO, Drug form: TAB, Daily, Dosing Weight 65.6, kg, Start date: 02/06/23 9:00:00 CDT, Duration: 30 day, Stop date: 03/07/23 9:00:00 CDT, Pediatric Dosing Carlyn Espinal remove patch 02-06 14:00: 00 Yes Notes: Remove old patch before applicatio n of new patch. WASTE: F/P - P Waste Black; E - P Waste Black Carlyn Espinal citalopram 02-06 14:00: 00 Yes Notes: (Same As: CeleXA) Carlyn Salinasann oxyCODONE immediate release 02-06 13:30: 00 Yes Notes: (Same as: Roxicodone ) Carlyn Espinal potassium phosphate 02-06 11:10: 00 No Notes: (Same as: K Phosphate) Infuse over 4 hour. Do not infuse phosphorou s concurrent ly in the same line as TPN or IVF that contains calcium. For double lumen central lines, phosphorou s may be infused in a separate lumen from TPN. Jakubjoce sara Espinal tramadol 02-05 17:22: 00 No Notes: Not to exceed 400mg/day. (Same As: Ultram) Jakubjoce sara [place] dronabinol 02-05 17:00: 00 Yes Notes: (Same as: Marinol) Carlyn Espinal hydrOXYzine 02-05 17:00: 00 Yes Notes: (Same as: Vistaril) Carlyn Espinal nicotine 02-05 17:00: 00 Yes Notes: Patch is applied daily to clean, dry, hairless, intact skin on trunk or upper outer arm. Starting dose 10 or less cigarettes /day. Remove old patch before applicatio n of new patch. (Same as Jenni Sewell WASTE: F/P - P Waste Black; E - P Waste Black Carlyn Espinal docusate-se nna 50 mg-8.6 mg oral tablet 02-05 14:00: 00 Yes Notes: (Same as Senokot-S) Equiv. to Anna-Col[place] e. Carlyn Espinal MiraLax 02-05 14:00: 00 Yes Notes: Dissolve in 8 oz of water or juice. (Same as: Miralax) Carlyn Espinal lidocaine topical 02-05 14:00: 00 Yes Notes: Patch is applied to intact skin to cover painful area for up to 12 hours in a 24-hour period (12 hours on and 12 hours off). Please indicate the location of applicatio n site. Site 1: Remove old patch before applicatio n of new patch. (Same as Aspercreme Lidocaine Patch) Carlyn Espinal enoxaparin 02-05 14:00: 00 Yes Notes: (Same as: Lovenox) Carlyn Espinal sodium phosphate 02-05 12:24: 00 No Notes: Infuse over 4 hour. Do not infuse phosphorou s concurrent ly in the same line as TPN or IVF that contains calcium. For double lumen central lines, phosphorou s may be infused in a separate lumen from TPN. Carlyn Espinal ceFAZolin (SCIP) + sterile water 20 mL 02-05 01:00: 00 No Notes: (Same As: AncefVegafzol) MEDICATION WASTE Product Size: 2000 mg Product Wasted: ___ mg Carlyn Espinal Robaxin 02-04 23:00: 00 Yes Notes: (Same as:Robaxin ) Memjoce Espinal tramadol 02-04 23:00: 00 No Notes: Not to exceed 400mg/day. (Same As: Ultram) Memjoce Espinal sugammadex (ANES) 02-04 19:12: 00 No Route: IV, Drug form: SOLN, ONCE, Stop date: 02/04/23 14:12:00 CDT Memjoce Espinal ondansetron (ANES) 02-04 19:04: 00 No Route: IV, Drug form: INJ, ONCE, Stop date: 02/04/23 14:04:00 CDT Memjoce Espinal hydromorpho ne (ANES) 02-04 18:28: 00 No Route: IV, Drug form: INJ, ONCE, Stop date: 02/04/23 13:28:00 CDT Jakubjoce Espinal remove patch 02-04 18:00: 00 Yes Notes: Remove patch 12 hours after applicatio n each day. Memjoce Espinal acetaminoph en (ANES) 02-04 17:43: 00 No Route: IV, Drug form: INJ, ONCE, Stop date: 02/04/23 12:43:00 CDT Memjoce Espinal ketAMINE (ANES) 02-04 17:43: 00 No Route: IV, Drug form: INJ, ONCE, Stop date: 02/04/23 12:43:00 CDT Memjoce Salinasann ANES oxyCODONE 5 mg immediate release tablet 02-04 17:21: 00 No Notes: (Same as: Roxicodone ) Memoria sara Teddy ANES HYDROmorpho ne 02-04 17:21: 00 No Notes: Same as Dilaudid Memoria sara MICHAEL flumazenil 02-04 17:21: 00 No Notes: (Same as: Romazicon) Memoria sara Teddy ANES naloxone 02-04 17:21: 00 No Notes: Same as Narcan Memjoce ruiz Teddy ANES ondansetron 02-04 17:21: 00 No Notes: (Same as: Zofran) MEDICATION WASTE Product Size: 4 mg Product Wasted: ___ mg Carlyn MICHAEL methocarbam ol + Sodium Chloride 0.9% IV 100 mL 02-04 17:21: 00 No Notes: (Same as:Robaxin ) Carlyn Espinal ePHEDrine (ANES) 02-04 15:50: 00 No Route: IV, Drug form: INJ, ONCE, Stop date: 02/04/23 10:50:00 CDT Memjoce Espinal lidocaine (ANES) 02-04 15:39: 00 No Route: IV, Drug form: INJ, ONCE, Stop date: 02/04/23 10:39:00 CDT Memjoec Espinal propofol (ANES) 02-04 15:39: 00 No Route: IV, Drug form: INJ, ONCE, Stop date: 02/04/23 10:39:00 CDT Memjoce Espinal rocuronium (ANES) 02-04 15:39: 00 No Route: IV, Drug form: INJ, ONCE, Stop date: 02/04/23 10:39:00 CDT Memjoce Espinal fentaNYL (ANES) 02-04 15:39: 00 No Route: IV, Drug form: INJ, ONCE, Stop date: 02/04/23 10:39:00 CDT Carlyn Espinal dexamethaso ne (ANES) 02-04 15:39: 00 No Route: IV, Drug form: INJ, ONCE, Stop date: 02/04/23 10:39:00 CDT Memjoce Espinal phenylephri ne (ANES) 02-04 15:39: 00 No Route: IV, Drug form: INJ, ONCE, Stop date: 02/04/23 10:39:00 CDT Memjoce Espinal ceFAZolin (ANES) 02-04 15:34: 00 No Route: IV, Drug form: INJ, ONCE, Stop date: 02/04/23 10:34:00 CDT Memjoce Espinal norepinephr ine (ANES) 10 microgram 02-04 15:28: 00 No Route: IV, Drug form: INJ, Start date: 02/04/23 10:28:00 CDT, Stop date: 02/04/23 11:28:00 CDT Carlyn Espinal midazolam (ANES) 02-04 15:09: 00 No Route: IV, Drug form: SOLN, ONCE, Stop date: 02/04/23 10:09:00 CDT Carlyn Espinal Lactated Ringers Injection IV (ANES) 1000 mL 02-04 14:36: 00 No Route: IV, Total Volume: 1,000, Start date: 02/04/23 9:36:00 CDT, Stop date: 02/04/23 10:36:00 CDT Carlyn Espinal bacitracin topical 02-04 14:00: 00 Yes 1 appl, Route: TOP, Daily, Drug form: OINT, Priority: Stat, Start date: 02/04/23 9:00:00 CDT, Duration: 30 day, Stop date: 03/05/23 9:00:00 CDT, 0 Carlyn Espinal enoxaparin 02-04 02:00: 00 No 30 mg, Route: SUB-Q, ONCE, Dosing Weight 68.182, kg, Start date: 02/03/23 21:00:00 CDT, Stop date: 02/03/23 21:00:00 CDT Carlyn Espinal morphine Sulfate 02-03 23:45: 00 No 4 mg, Route: IVP, ONCE, Dosing Weight 68.182, kg, Priority: STAT, Start date: 02/03/23 18:45:00 CDT, Stop date: 02/03/23 18:45:00 CDT Carlyn Espinal lidocaine 4% topical film 02-03 23:00: 00 No Notes: Patch is applied to intact skin to cover painful area for up to 12 hours in a 24-hour period (12 hours on and 12 hours off). Please indicate the location of applicatio n site. Site 1: Remove old patch before applicatio n of new patch. (Same as Aspercreme Lidocaine Patch) Carlyn Espinal Dextrose 50% Syringe (D50W) 02-03 22:48: 00 Yes 12.5 gm, 25 mL, Route: IVP, Drug Form: INJ, Dosing Weight 68.182, kg, PRN, PRN Blood Glucose Results, Start date: 02/03/23 17:48:00 CDT, Duration: 30 day, Stop date: 03/05/23 17:47:00 CDT, 0 Carlyn Espinal glucagon 02-03 22:48: 00 Yes 1 mg, Route: IM, Drug form: PDR/INJ, PRN, Dosing Weight 68.182, kg, PRN Blood Glucose Results, Start date: 02/03/23 17:48:00 CDT, Duration: 30 day, Stop date: 03/05/23 17:47:00 CDT, 0 Carlyn Salinasann acetaminoph en 02-03 22:45: 00 Yes Notes: Max acetaminop hen 4000 mg/day (4 gm/day). (Same as: Tylenol Extra Strength) Carlyn sara Espinal gabapentin 02-03 22:45: 00 No Notes: (Same as: Neurontin) Carlyn Salinasann tramadol 02-03 22:45: 00 No Notes: Not to exceed 400mg/day. (Same As: Ultram) Carlyn Salinasann Lactated Ringers IV 1,000 mL 02-03 22:38: 00 No 1,000 mL, Rate: 50 ml/hr, Infuse over: 20 hr, Route: IV, Dosing Weight 68.182 kg, Total Volume: 1,000, Start date: 02/03/23 17:38:00 CDT, Duration: 30 day, Stop date: 03/05/23 17:37:00 CDT, BSA: 1.8 m2, 0 Jakubjoce Salinasann morphine Sulfate 02-03 19:52: 00 No 4 mg, Route: IVP, ONCE, Dosing Weight 68.182, kg, Priority: STAT, Start date: 02/03/23 14:52:00 CDT, Stop date: 02/03/23 14:52:00 CDT Jakubjoce sara Espinal Omnipaque 350 mg/mL 02-03 19:23: 00 No 100 mL, Route: IVP, Drug Form: SOLN, Dosing Weight 68.182, kg, ONCALL, STAT, Start date: 02/03/23 14:23:00 CDT, Duration: 1 doses or times, Dose = 2.2ml/kg, Max dose = 100ml -- "To be infused by Radiology Staff ONLY" Carlyn Espinal Saline Flush 0.9% 02-03 18:58: 00 Yes Notes: Same as: BD Posiflush Sterile Carlyn Espinal HYDROcodone -acetaminop hen (NORCO 5) 5-325 mg tablet 1 tablet 07-03 18:15: 00 07-03 18:02 :00 No 1{tbl} 1 tablet, Oral, ONCE, 1 dose, On Thu07/03/22 at 1315, ARIS [facility] HYDROcodone -acetaminop hen (NORCO) 10-325 mg tablet 1 tablet 06-24 16:15: 00 06-24 16:44 :00 No 1{tbl} 1 tablet, Oral, ONCE, 1 dose, On Thu06/24/22 at 1115, Routine [facility] acetaminoph en-codeine (Tylenol w/ Codeine #3) 300-30 MG tablet 06-24 00:00: 00 Yes 1{tbl} Take 1 tablet by mouth. [facility] acetaminoph en-codeine 300-30 mg tablet 06-24 00:00: 00 Yes [id number] 1{tbl} Take 1 tablet by mouth every 4 (four) hours as needed for Pain (scale 4-6). Indication s: acute pain [facility] acetaminoph en-codeine 300-30 mg tablet 06-24 00:00: 00 Yes [id number] 1{tbl} Take 1 tablet by mouth every 4 (four) hours as needed for Pain (scale 4-6). Indication s: acute pain [facility] hydrOXYzine 50 mg tablet 6-10 00:00: 00 Yes [id number] 50mg Take 1 tablet by mouth every 6 (six) hours as needed for Anxiety. [facility] SERTraline 25 mg tablet 03-28 00:00: 00 Yes [id number] 25mg Take 1 tablet by mouth daily. [facility] hydrOXYzine 50 mg tablet 03-28 00:00: 00 Yes [id number] 50mg Take 1 tablet by mouth every 6 (six) hours as needed for Anxiety. [facility] SERTraline 25 mg tablet 03-28 00:00: 00 Yes [id number] 25mg Take 1 tablet by mouth daily. [facility] hydrOXYzine 50 mg tablet 03-28 00:00: 00 Yes [id number] 50mg Take 1 tablet by mouth every 6 (six) hours as needed for Anxiety. [facility] SERTraline 25 mg tablet 03-28 00:00: 00 Yes [id number] 25mg Take 1 tablet by mouth daily. [facility] hydrOXYzine 50 mg tablet 03-28 00:00: 00 Yes [id number] 50mg Take 1 tablet by mouth every 6 (six) hours as needed for Anxiety. [facility] SERTraline 25 mg tablet 03-28 00:00: 00 Yes [id number] 25mg Take 1 tablet by mouth daily. [facility] ondansetron (ZOFRAN) 4 mg tablet 07-13 00:00: 00 Yes 4mg Take 1 tablet by mouth every 8 (eight) hours as needed for Nausea and Vomiting (N/V). [facility] traMADOL (ULTRAM) 50 mg tablet 07-13 00:00: 00 Yes 50mg Take 1 tablet by mouth every 6 (six) hours as needed for Pain (scale 7-10). [facility] ondansetron (ZOFRAN) 4 mg tablet 07-13 00:00: 00 Yes 4mg Take 1 tablet by mouth every 8 (eight) hours as needed for Nausea and Vomiting (N/V). [facility] traMADOL (ULTRAM) 50 mg tablet 07-13 00:00: 00 Yes 50mg Take 1 tablet by mouth every 6 (six) hours as needed for Pain (scale 7-10). [facility] mg tablet 07-13 00:00: 00 Yes 4mg Take 1 tablet by mouth every 8 (eight) hours as needed for Nausea and Vomiting (N/V). [facility]AM[facility] 50 mg tablet 07-13 00:00: 00 Yes 50mg Take 1 tablet by mouth every 6 (six) hours as needed for Pain (scale 7-10). [facility]AN) 4 mg tablet 07-13 00:00: 00 Yes 4mg Take 1 tablet by mouth every 8 (eight) hours as needed for Nausea and Vomiting (N/V). [facility]AM[facility] 50 mg tablet 07-13 00:00: 00 Yes 50mg Take 1 tablet by mouth every 6 (six) hours as needed for Pain (scale 7-10). [facility] SERTRALINE 50 MG ORAL TAB 2004-10 00:00: 00 Yes 1 Tab Oral DAILY [facility] TRAZODONE 50 MG ORAL TAB 2004-10 00:00: 00 Yes 1 Tab Oral at bedtime as needed for insomnia [facility] ORAL TAB 2004-10 00:00: 00 Yes 1 Tab Oral DAILY [facility] TRAZODONE 50 MG ORAL TAB 2004-10 00:00: 00 Yes 1 Tab Oral at bedtime as needed for insomnia [facility] SERTRALINE 50 MG ORAL TAB 2004-10 00:00: 00 Yes 1 Tab Oral DAILY [facility] TRAZODONE 50 MG ORAL TAB 2004-10 00:00: 00 Yes 1 Tab Oral at bedtime as needed for insomnia [facility] SERTRALINE 50 MG ORAL TAB 2004-10 00:00: 00 Yes 1 Tab Oral DAILY [facility] TRAZODONE 50 MG ORAL TAB 2004-10 00:00: 00 Yes 1 Tab Oral at bedtime as needed for insomnia [facility] Vital Signs Vital Name Observation Time Observation Value Comments S ource Systolic blood pressure 2023-03-05 16:28:00 158 mm[Hg] [facility] Diastolic blood pressure 2023-03-05 16:28:00 79 mm[Hg] [facility] Heart rate 2023-03-05 16:28:00 68 /min [facility] Body temperature 2023-03-05 16:28:00 36.67 Nisa [facility] Body height 2023-03-05 16:28:00 [facility] weight 2023-03-05 16:28:00 [facility]772 [facility] BMI 2023-03-05 16:28:00 [facility]05 [facility] Di[facility] pressure 2022-07-03 17:30:00 78 mm[Hg] [facility] Heart rate 2022-07-03 17:30:00 86 /min [facility] Body temperature 2022-07-03 17:30:00 37 Nisa [facility] Respiratory rate 2022-07-03 17:30:00 16 /min [facility] Oxygen saturation in Arterial blood by Pulse oximetry 2022-07-03 17:30:00 98 /min [facility] Systolic blood pressure 2022-07-03 17:30:00 130 mm[Hg] [facility] Body height 2022-07-03 15:01:00 167.6 cm [facility] Body weight 2022-07-03 15:01:00 72.576 kg [facility] BMI 2022-07-03 15:01:00 25.82 kg/m2 [facility] Systolic blood pressure 2022-06-24 17:38:32 128 mm[Hg] [facility] Diastolic blood pressure 2022-06-24 17:38:32 72 mm[Hg] [facility] Heart rate 2022-06-24 17:38:32 65 /min [facility] Respiratory rate 2022-06-24 17:38:32 17 /min [facility] Oxygen saturation in Arterial blood by Pulse oximetry 2022-06-24 17:38:32 98 /min [facility] Body temperature 2022-06-24 14:31:00 37.44 Nisa [facility] Body height 2022-06-24 14:31:[address] [facility] 2022-06-24 14:31:00 72.576 kg [facility] BMI 2022-06-24 14:31:00 25.82 kg/m2 [facility] Systolic blood pressure 2022-03-24 23:50:00 110 mm[Hg] [facility] Diastolic blood pressure 2022-03-24 23:50:00 73 mm[Hg] [facility] Heart rate 2022-03-24 23:50:00 97 /min [facility] Body temperature 2022-03-24 23:50:00 35.67 Nisa [facility] Respiratory rate 2022-03-24 23:50:00 18 /min [facility] Body height 2022-03-24 23:50:00 167.6 cm [facility] Body weight 2022-03-24 23:50:00 68.04 kg [facility] BMI 2022-03-24 23:50:00 24.21 kg/m2 [facility] Oxygen saturation in Arterial blood by Pulse oximetry 2022-03-24 23:50:00 95 /min [facility] Body temperature 2019-06-01 20:14:00 37.06 Nisa [facility] Respiratory rate 2019-06-01 20:14:00 18 /min [facility] Oxygen saturation in Arterial blood by Pulse oximetry 2019-06-01 20:14:00 97 /min [facility] Systolic blood pressure 2019-06-01 19:13:00 138 mm[Hg] [facility] Diastolic blood pressure 2019-06-01 19:13:00 96 mm[Hg] [facility] Heart rate 2019-06-01 19:13:00 85 /min [facility] Body height 2019-06-01 19:13:[address] Body weight 2019-06-01 19:13:00 77.111 kg [facility] BMI 2019-06-01 19:13:00 27.44 kg/m2 [facility] Heart Rate 2023-02-10 21:13:07 [facility] [place] Systolic (mm Hg) 2023-02-10 21:12:55 [facility] [place] Diastolic (mm Hg) 2023-02-10 21:12:55 [facility] Temperature Oral (F) 2023-02-10 21:12:41 98.1 F [facility] [place] Height 2023-02-09 19:26:00 5 [ft_i] [facility] [place] Weight 2023-02-09 19:26:00 [facility] Heart Rate 2023-02-09 08:32:11 [facility] [place] Respitory Rate 2023-02-09 08:32:11 [facility] Temperature Oral (F) 2023-02-09 08:31:58 97.7 F [facility] [place] Systolic (mm Hg) 2023-02-09 08:31:43 [facility] Diastolic (mm Hg) 2023-02-09 08:31:43 [facility] [place] Heart Rate 2023-02-09 08:31:43 [facility] [place] Heart Rate 2023-02-09 04:22:45 [facility] Respitory Rate 2023-02-09 04:22:45 [facility] [place] Systolic (mm Hg) 2023-02-09 04:22:16 [facility] Diastolic (mm Hg) 2023-02-09 04:22:16 [facility] Temperature Oral (F) 2023-02-09 04:22:00 98.1 F [facility] Respitory Rate 2023-02-09 02:21:00 [facility] [place] Temperature Oral (F) 2023-02-09 01:12:58 98 F [facility] [place] Systolic (mm Hg) 2023-02-09 01:12:49 [facility] [place] Diastolic (mm Hg) 2023-02-09 01:12:49 [facility] [place] Temperature Oral (F) 2023-02-07 00:11:56 98.9 F [facility] [place] Height 2023-02-04 11:33:00 167.64 cm [facility] [place] Weight 2023-02-04 11:33:00 [facility] [place] BMI Calculated 2023-02-04 11:33:00 [facility] Height 2023-02-03 19:09:00 167.64 cm [facility] BMI Calculated 2023-02-03 19:09:00 M omar Espinal Weight 2023-02-03 19:09:00 [facility] [place] Procedures Procedure Date / Time Performed Performing Clinician Source Closed treatment of posterior pelvic ring fracture(s), dislocation(s), diastasis or subluxation of the ilium, sacroiliac joint, and/or sacrum, with or without anterior pelvic ring fracture(s) and/or dislocation(s) of the pubic symphysis and/or superior/in 2023-02-04 16:52:00 [facility] CT HIP RIGHT WO CONTRAST 2022-07-03 16:00:39 Beatriz Arguello [facility] CONSENT/REFUSAL FOR DIAGNOSIS AND TREATMENT 2022-07-03 14:55:25 Doctor Unassigned, [place] [facility] XR HIPS 2 VW RIGHT 2022-06-24 15:47:44 Beatriz Arguello [facility] XR PELVIS <3 VW 2022-06-24 15:47:44 Beatriz Arguello [facility] NOTICE OF PRIVACY PRACTICES 2019-06-01 18:54:45 Doctor Unassigned, [place] [facility] NOTICE OF PRIVACY PRACTICES 2019-06-01 18:54:44 Doctor Unassigned, [place] [facility] CONSENT/REFUSAL FOR DIAGNOSIS AND TREATMENT 2019-06-01 18:53:15 Doctor Unassigned, [place] [facility] Encounters Start Date/Time End Date/Time Encounter Type Admission Type Attending Clinicians Care Facility Care Department Encounter ID Source 2023-04-09 16:35:01 Outpatient [facility] [id number] [facility] 2023-04-07 12:24:54 Outpatient [facility] [id number] [facility] 2023-03-05 11:22:22 Outpatient [facility] [id number] [facility] 2023-02-27 10:22:34 Outpatient [facility] [id number] [facility] 2023-03-17 15:00:00 2023-03-17 15:00:00 Outpatient CLARI BORJA [facility] [id number] [facility] 2023-03-17 12:30:00 2023-03-17 12:30:00 Outpatient ANNE MULLINS [facility] [id number] [facility] 2023-03-05 13:50:00 2023-03-05 13:50:00 Office Visit PER LUU [facility] [address] [id number] [facility] 2023-02-03 19:07:00 2023-02-10 22:56:00 Inpatient [facility] [id number] [address] [place] [address] 2023-02-03 14:07:00 2023-02-10 17:56:00 Outpatient Vi Mosley [facility] [id number] 2023-02-04 05:00:00 2023-02-04 05:00:00 Outpatient ANNE MULLINS [facility] [id number] [facility] 2023-02-03 14:07:00 2023-02-03 14:07:00 Outpatient Marco A Mosleylian Georges [facility] [id number] 2022-07-03 10:03:00 2022-07-03 13:12:00 Emergency X BEATRIZ ARGUELLO [facility] ERT [id number] [facility] 2022-07-03 10:03:00 2022-07-03 13:12:00 Emergency Beatriz Arguello [facility] .[id number] [id number] [facility] 2022-06-24 09:38:00 2022-06-24 12:40:00 Emergency X BEATRIZ ARGUELLO [facility] ERT [id number] [facility] 2022-06-24 09:38:00 2022-06-24 12:40:00 Emergency Arguello, Beatriz S [facility] [id number] [id number] [id number] [facility] 2022-03-24 18:54:00 2022-03-24 19:17:00 Emergency X PRISCILA JASMINE [facility] ERT [id number] [facility] 2022-03-24 18:54:00 2022-03-24 19:17:00 Emergency Priscila Jasmine [facility] [id number] [id number] [id number] [facility] 2019-06-01 14:17:22 2019-06-01 16:23:00 Emergency Radha Garcia [facility] [id number] [id number] [id number] [id number] [facility] Results Test Description Test Time Test Comments Results Result Co mments Source [place] 20971023-04-25 17:31:30* Test Item Value Reference Range Interpretation Comme nts RADRPT (test code = RADRPT) EXAM: XR LEFT HAND 3 VIEWSDATE: 02/10/2023 9:12INDICATION: - fx f/uCOMPARISON: February 03, 2023TECHNIQUE: PA, lateral and oblique radiographs of the handIMPRESSION: * Follow-up examination demonstrates no significant change in appearance of the minimally displaced left fifth metacarpal neck fracture.* Distal radial intra-articular fracture with minimal volar displacement of the distal fragment is unchanged* Overlying splint limits detail.* Diffuse soft tissue swelling is noted. [facility]2023-04-24 21:02:00* Test Item Value Reference Range Interpretation Comme nts Glucose POC (test code = Glucose POC) 113 70-99 [place] 154813-04-22 20:24:54* Test Item Value Reference Range Interpretation Comme nts RADRPT (test code = RADRPT) EXAM: XR PELVIS 1 VIEWDATE: 02/07/2023 14:43INDICATION: - Pt w/ known fx's, wants non-op. S/p ambulation.COMPARISON: February 03, 2023TECHNIQUE: Frontal pelvisIMPRESSION: * The previously identified right acetabular anterior wall fracture is not clearly evaluated, and demonstrates no significant displacement.* No new fractures identified* Limited evaluation of the sacrum and this tear pelvis.* Global pelvic alignment is satisfactory. [facility]dn[facility]BEZ[facility]YYJ6546-98-22 09:24:00* Test Item Value Reference Range Interpretation Comme nts Calcium Lvl (test code = Calcium Lvl) 9.0 8.5-10.5 [facility] SystemGjbxzcqSWWHXXBMO1195-80-51 09:24:00* Test Item Value Reference Range Interpretation Comme nts AGAP (test code = AGAP) 4.9 10.0-20.0 [facility] SystemPkatfvxNTUYVOEEE8888-02-39 09:24:00* Test Item Value Reference Range Interpretation Comme nts eGFR (test code = eGFR) 120 [facility] SystemYzlblpaMEBCRBKPT4743-11-29 09:24:00* Test Item Value Reference Range Interpretation Comme nts Magnesium Lvl (test code = M agnesium Lvl) 2.3 1.8-2.4 [facility] SystemXjmemsaSWEWRNGFZ7461-77-27 09:24:00* Test Item Value Reference Range Interpretation Comme nts Phosphorus (test code = Phosphorus) 2.9 2.5-4.5 [facility]EluivtbSQAEPKRLRY7637-65-37 09:24:00* Test Item Value Reference Range Interpretation Comme nts WBC (test code = WBC) 8.0 3.7-10.4 [facility] AliceSjexeddBBPFDDWYFJ5739-45-82 09:24:00* Test Item Value Reference Range Interpretation Comme nts RBC (test code = RBC) 2.87 4.20-5.40 [facility] AliceHlhbdklNMZLMDEXKX7481-01-59 09:24:00* Test Item Value Reference Range Interpretation Comme nts Hgb (test code = Hgb) 9.1 12.0-16.0 [facility] AlicePihifvkNOQFHLDRAP0768-81-15 09:24:00* Test Item Value Reference Range Interpretation Comme nts Hct (test code = Hct) 26.8 36.0-48.0 [place] 567263-04-22 09:24:00* Test Item Value Reference Range Interpretation Comme nts MCV (test code = MCV) 93.3 80.0-98.0 [facility] AliceIdbnytgVEHQMDUHFX9586-47-71 09:24:00* Test Item Value Reference Range Interpretation Comme nts MCH (test code = MCH) 31.8 pg 27.0-31.0 [facility] AliceVsmxoycJUFJHSBVXE2990-24-65 09:24:00* Test Item Value Reference Range Interpretation Comme nts MCHC (test code = MCHC) 34.1 32.0-36.0 [facility] AliceUuzybprKRJPPRTSEE1418-65-37 09:24:00* Test Item Value Reference Range Interpretation Comme nts RDW (test code = RDW) 13.0 11.5-14.5 [facility] AliceHehiuffXTGOSQFLAI5395-29-54 09:24:00* Test Item Value Reference Range Interpretation Comme nts Platelet (test code = Platelet) 196 133-450 [facility] AliceCwqenydTJOUTLJDSU1708-54-93 09:24:00* Test Item Value Reference Range Interpretation Comme nts MPV (test code = MPV) 7.9 7.4-10.4 [facility] AliceCkbbkmuSZBWYDNYYU9679-50-97 09:24:00* Test Item Value Reference Range Interpretation Comme nts Segs (test code = Segs) 63.1 45.0-75.0 [facility] AliceMlciylvDZNFMMMLAW8200-43-07 09:24:00* Test Item Value Reference Range Interpretation Comme nts Lymphocytes (test code = Lymphocytes) 23.9 20.0-40.0 [facility] AliceIlzxpleDBNDZYQXIO4675-02-97 09:24:00* Test Item Value Reference Range Interpretation Comme nts Monocytes (test code = Monocytes) 11.1 2.0-12.0 [facility] AliceXhgrehkDPRGAYVKGA9056-43-79 09:24:00* Test Item Value Reference Range Interpretation Comme nts Eosinophils (test code = Eosinophils) 1.4 <=4.0 [facility] AliceRfbnmqrHXODTTHSIU3029-41-98 09:24:00* Test Item Value Reference Range Interpretation Comme nts Basophils (test code = Basophils) 0.5 <=1.0 [facility] AliceHvfkdhjPGRLDGTZOF6585-76-03 09:24:00* Test Item Value Reference Range Interpretation Comme nts Neutrophils # (test code = N eutrophils #) 5.0 1.5-8.1 [facility] AliceGuozqanMKXHWUPAFX2746-64-25 09:24:00* Test Item Value Reference Range Interpretation Comme nts Lymphocytes # (test code = L ymphocytes #) 1.9 1.0-5.5 [facility] AliceHzcghwhNXYWYZKJRE7555-37-49 09:24:00* Test Item Value Reference Range Interpretation Comme nts Monocytes # (test code = Monocytes #) 0.9 <=0.8 [facility] AliceVjoogcqNPDLPIZVNA9921-40-24 09:24:00* Test Item Value Reference Range Interpretation Comme nts Eosinophils # (test code = E osinophils #) 0.1 <=0.5 [facility] AliceLwdlyroMRHCYTCUFM0060-36-88 09:24:00* Test Item Value Reference Range Interpretation Comme nts WBC (test code = WBC) 8.0 3.7-10.4 [facility] AliceXvngosnFFGYXCWFHS7545-21-60 09:24:00* Test Item Value Reference Range Interpretation Comme nts RBC (test code = RBC) 2.87 4.20-5.40 [facility] AliceGnqvdylFOAKHRSJHE2804-74-22 09:24:00* Test Item Value Reference Range Interpretation Comme nts Hgb (test code = Hgb) 9.1 12.0-16.0 [facility] AliceDbfvuitVSDYNLPWBX3154-63-70 09:24:00* Test Item Value Reference Range Interpretation Comme nts Hct (test code = Hct) 26.8 36.0-48.0 [facility] AliceVexbolwCQVIGYSXEU7253-76-45 09:24:00* Test Item Value Reference Range Interpretation Comme nts MCV (test code = MCV) 93.3 80.0-98.0 [facility] AliceFiocfpcESZFXXFTQK4429-47-01 09:24:00* Test Item Value Reference Range Interpretation Comme nts MCH (test code = MCH) 31.8 pg 27.0-31.0 [facility] AliceLsnluorRZRJHIALUV0489-22-97 09:24:00* Test Item Value Reference Range Interpretation Comme nts MCHC (test code = MCHC) 34.1 32.0-36.0 [facility] AliceFdvargdGLJVSJAMFU6571-14-37 09:24:00* Test Item Value Reference Range Interpretation Comme nts RDW (test code = RDW) 13.0 11.5-14.5 [facility] AliceScbjvytXHAHMRSBHH4916-22-67 09:24:00* Test Item Value Reference Range Interpretation Comme nts Platelet (test code = Platelet) 196 133-450 [facility] AliceEzkctcmSQCLBQUOBP3351-36-12 09:24:00* Test Item Value Reference Range Interpretation Comme nts MPV (test code = MPV) 7.9 7.4-10.4 [facility] AliceWpslvdbFNRLNPXYTK1557-29-33 09:24:00* Test Item Value Reference Range Interpretation Comme nts Segs (test code = Segs) 63.1 45.0-75.0 [facility] AliceOoycynxHEDFZAKJDD9123-42-01 09:24:00* Test Item Value Reference Range Interpretation Comme nts Lymphocytes (test code = Lymphocytes) 23.9 20.0-40.0 [facility] AliceKzpupdrCCMMEGFDJY3655-24-41 09:24:00* Test Item Value Reference Range Interpretation Comme nts Monocytes (test code = Monocytes) 11.1 2.0-12.0 [facility] AliceAnrofxmGUIAEXGIXU8644-40-01 09:24:00* Test Item Value Reference Range Interpretation Comme nts Eosinophils (test code = Eosinophils) 1.4 <=4.0 [facility] AlicePqoslvnNWHCETRNFV1433-11-18 09:24:00* Test Item Value Reference Range Interpretation Comme nts Basophils (test code = Basophils) 0.5 <=1.0 [facility] AliceJdicffnFMWOYZKRHD8942-74-69 09:24:00* Test Item Value Reference Range Interpretation Comme nts Neutrophils # (test code = N eutrophils #) 5.0 1.5-8.1 [facility] AliceSiazmhvPVQTYDDLQF0468-43-07 09:24:00* Test Item Value Reference Range Interpretation Comme nts Lymphocytes # (test code = L ymphocytes #) 1.9 1.0-5.5 [facility] AliceHujivwdRTCQMWKBCQ8604-19-30 09:24:00* Test Item Value Reference Range Interpretation Comme nts Monocytes # (test code = Monocytes #) 0.9 <=0.8 [facility] AliceDfrrtwzDVEZXKUDFU4382-15-19 09:24:00* Test Item Value Reference Range Interpretation Comme nts Eosinophils # (test code = E osinophils #) 0.1 <=0.5 [facility]2023-04-22 09:24:00* Test Item Value Reference Range Interpretation Comme nts Glucose Lvl (test code = Glucose Lvl) 112 70-99 [facility] YABGL7178-37-13 09:24:00* Test Item Value Reference Range Interpretation Comme nts BUN (test code = BUN) 8 7-22 [facility]woodElcoATRI[facility] CHARLOTTEZJPLL4348-26-31 09:24:00* Test Item Value Reference Range Interpretation Comme nts Creatinine Lvl (test code = Creatinine Lvl) 0.32 0.50-1.40 [facility] DGKDF5814-33-22 09:24:00* Test Item Value Reference Range Interpretation Comme nts Sodium Lvl (test code = Sodium Lvl) 136 135-145 [facility] WNPOC3804-37-84 09:24:00* Test Item Value Reference Range Interpretation Comme nts Potassium Lvl (test code = P otassium Lvl) 3.9 3.5-5.1 [facility] MGOUQ7830-49-06 09:24:00* Test Item Value Reference Range Interpretation Comme nts Chloride Lvl (test code = Chloride Lvl) 110 95-109 [facility] IPDKR1270-23-15 09:24:00* Test Item Value Reference Range Interpretation Comme nts CO2 (test code = CO2) 25 24-32 [facility] ERDBW7122-04-36 09:24:00* Test Item Value Reference Range Interpretation Comme nts Calcium Lvl (test code = Calcium Lvl) 9.0 8.5-10.5 [facility] GTFKQ0362-25-02 09:24:00* Test Item Value Reference Range Interpretation Comme nts AGAP (test code = AGAP) 4.9 10.0-20.0 [facility] DQVDZ6389-20-19 09:24:00* Test Item Value Reference Range Interpretation Comme nts eGFR (test code = eGFR) 120 [facility] BVACP4736-99-67 09:24:00* Test Item Value Reference Range Interpretation Comme nts Magnesium Lvl (test code = M agnesium Lvl) 2.3 1.8-2.4 [facility] DFZOU5627-02-23 09:24:00* Test Item Value Reference Range Interpretation Comme nts Phosphorus (test code = Phosphorus) 2.9 2.5-4.5 [facility] SystemAtidwgyAPMRQDLXO3568-73-22 09:24:00* Test Item Value Reference Range Interpretation Comme nts Glucose Lvl (test code = Glucose Lvl) 112 70-99 [facility] SystemAfiyprqQVEXCSTAI3642-73-61 09:24:00* Test Item Value Reference Range Interpretation Comme nts BUN (test code = BUN) 8 05-09 [facility] SystemObuugyzVWCGKQTAH8448-02-16 09:24:00* Test Item Value Reference Range Interpretation Comme nts Creatinine Lvl (test code = Creatinine Lvl) 0.32 0.50-1.40 [facility] SystemTltrbqsSQZPHTICH6919-01-62 09:24:00* Test Item Value Reference Range Interpretation Comme nts Sodium Lvl (test code = Sodium Lvl) 136 135-145 [facility] SystemQtnmklmCERJODUYG5558-00-97 09:24:00* Test Item Value Reference Range Interpretation Comme nts Potassium Lvl (test code = P otassium Lvl) 3.9 3.5-5.1 [facility] SystemBztlcgbZGYAPBZLS0955-79-18 09:24:00* Test Item Value Reference Range Interpretation Comme nts Chloride Lvl (test code = Chloride Lvl) 110 95-109 [facility] SystemUpvsxhzTDJTRSYMR2075-64-07 09:24:00* Test Item Value Reference Range Interpretation Comme nts CO2 (test code = CO2) 32 [facility]2023-04-22 02:34:00* Test Item Value Reference Range Interpretation Comme nts Gluc POC Comment 1 (test cod e = Gluc POC Comment 1) Notified RN/MD [facility]2023-04-21 06:52:00* Test Item Value Reference Range Interpretation Comme nts Glucose Lvl (test code = Glucose Lvl) 111 70-99 [facility]2023-04-21 06:52:00* Test Item Value Reference Range Interpretation Comme nts BUN (test code = BUN) 9 05-09 [facility]2023-04-21 06:52:00* Test Item Value Reference Range Interpretation Comme nts Creatinine Lvl (test code = Creatinine Lvl) 0.42 0.50-1.40 [facility]2023-04-21 06:52:00* Test Item Value Reference Range Interpretation Comme nts Sodium Lvl (test code = Sodium Lvl) 137 135-145 [facility]2023-04-21 06:52:00* Test Item Value Reference Range Interpretation Comme nts Potassium Lvl (test code = P otassium Lvl) 3.9 3.5-5.1 [facility]2023-04-21 06:52:00* Test Item Value Reference Range Interpretation Comme nts Chloride Lvl (test code = Chloride Lvl) 109 95-109 [place] 129183-04-21 06:52:00* Test Item Value Reference Range Interpretation Comme nts CO2 (test code = CO2) 27 24-32 [place] 129183-04-21 06:52:00* Test Item Value Reference Range Interpretation Comme nts Calcium Lvl (test code = Calcium Lvl) 8.1 8.5-10.5 [place] 129183-04-21 06:52:00* Test Item Value Reference Range Interpretation Comme nts AGAP (test code = AGAP) 4.9 10.0-20.0 [place] 129183-04-21 06:52:00* Test Item Value Reference Range Interpretation Comme nts eGFR (test code = eGFR) 113 [facility]2023-04-21 06:52:00* Test Item Value Reference Range Interpretation Comme nts Magnesium Lvl (test code = M agnesium Lvl) 2.2 1.8-2.4 [place] 129183-04-21 06:52:00* Test Item Value Reference Range Interpretation Comme nts Phosphorus (test code = Phosphorus) 2.3 2.5-4.5 [facility] AliceSxgsywtKFOTUKQJAR5588-54-80 06:52:00* Test Item Value Reference Range Interpretation Comme nts WBC (test code = WBC) 8.1 3.7-10.4 [place] 567263-04-21 06:52:00* Test Item Value Reference Range Interpretation Comme nts RBC (test code = RBC) 2.75 4.20-5.40 [place] 567263-04-21 06:52:00* Test Item Value Reference Range Interpretation Comme nts Hgb (test code = Hgb) 8.6 12.0-16.0 [place] 567263-04-21 06:52:00* Test Item Value Reference Range Interpretation Comme nts Hct (test code = Hct) 25.9 36.0-48.0 [facility] AliceBuerurgXDVIHGHIQO6728-34-38 06:52:00* Test Item Value Reference Range Interpretation Comme nts MCV (test code = MCV) 94.1 80.0-98.0 [facility] AliceCymveicDZHGCITGQI3725-18-14 06:52:00* Test Item Value Reference Range Interpretation Comme nts MCH (test code = MCH) 31.2 pg 27.0-31.0 [facility] AliceIszbtrgYPZXOOGGCA9397-73-39 06:52:00* Test Item Value Reference Range Interpretation Comme nts MCHC (test code = MCHC) 33.2 32.0-36.0 [facility] AliceUjdhapfFKTAGUAWMH8311-74-78 06:52:00* Test Item Value Reference Range Interpretation Comme nts RDW (test code = RDW) 13.7 11.5-14.5 [facility] AliceLscnfrhHVFBPDHCBV0925-45-48 06:52:00* Test Item Value Reference Range Interpretation Comme nts Platelet (test code = Platelet) 149 133-450 [facility] AliceUjrckliDAOOHTJHBI2000-07-55 06:52:00* Test Item Value Reference Range Interpretation Comme nts MPV (test code = MPV) 7.7 7.4-10.4 [facility] AliceYmhxvyxHOXNLOURJQ5346-35-45 06:52:00* Test Item Value Reference Range Interpretation Comme nts Segs (test code = Segs) 63.1 45.0-75.0 [facility] AliceFvhhubmHSTPOGXLCR8196-09-07 06:52:00* Test Item Value Reference Range Interpretation Comme nts Lymphocytes (test code = Lymphocytes) 22.2 20.0-40.0 [facility] AliceSjbnjhaKWJNADUDVO6608-73-01 06:52:00* Test Item Value Reference Range Interpretation Comme nts Monocytes (test code = Monocytes) 14.0 2.0-12.0 [facility] AliceGrhhdzlCAJAHGMOVG8573-87-57 06:52:00* Test Item Value Reference Range Interpretation Comme nts Eosinophils (test code = Eosinophils) 0.3 <=4.0 [facility] AliceVywqpdsYTFPWTGYOQ4667-18-58 06:52:00* Test Item Value Reference Range Interpretation Comme nts Basophils (test code = Basophils) 0.4 <=1.0 [facility] AliceIsbouzjODMTZBWNRO3659-03-47 06:52:00* Test Item Value Reference Range Interpretation Comme nts Neutrophils # (test code = N eutrophils #) 5.1 1.5-8.1 [facility] AliceFtghhotKFCGBQOYJI6923-75-61 06:52:00* Test Item Value Reference Range Interpretation Comme nts Lymphocytes # (test code = L ymphocytes #) 1.8 1.0-5.5 [facility] AliceDjwyykqULDANGHSSN9426-82-35 06:52:00* Test Item Value Reference Range Interpretation Comme nts Monocytes # (test code = Monocytes #) 1.1 <=0.8 [place] 20971023-04-20 19:58:23* Test Item Value Reference Range Interpretation Comme nts RADRPT (test code = RADRPT) EXAM: XR RIGHT ELBOW 3 VIEWSDATE: 02/05/2023 1430 hoursINDICATION: - s/p traumaCOMPARISON: None.TECHNIQUE: AP, lateral and oblique radiographs of the elbowFINDINGS: No acute fracture or malalignment is identified. Joint spaces are preserved.No elbow joint effusion is present. No soft tissue abnormality is identified.IMPRESSION: No acute abnormality. [place] 20971023-04-20 12:47:00* Test Item Value Reference Range Interpretation Comme radha RADRPT (test code = RADRPT) EXAM: CT LEFT KNEE WITHOUT CONTRASTEXAM: 3D RECONSTRUCTIONSDATE: 02/04/2023 21:47INDICATION: - fxCOMPARISON: Left knee radiographs 02/04/2023TECHNIQUE: Volumetric CT of the knee is acquired without contrast. Axial, coronal and sagittal images are provided. 3D volume-rendered reconstructions are created at the acquisition workstation.IV contrast: None.DLP: Refer to CT protocol formFINDINGS: Senior Speech Pathologist: Not sent/available.Distal femur: Intact. Subchondral cystic changes along the weightbearing medial femoral condyle.Patella: Intact.Proximal tibia: Intact.Proximal fibula: Acute, oblique, essentially nondisplaced fracture of the proximal fibular tip extending to the proximal tibiofibular joint.Soft tissues: Small knee joint effusion with possible trace fat fluid level. Mild soft tissue swelling along the posterolateral knee. No radiopaque foreign body or subcutaneous emphysema. No pneumarthrosis. IMPRESSION: Acute nondisplaced fracture of the proximal fibular tip. [facility]2023-04-20 05:00:00* Test Item Value Reference Range Interpretation Comme nts Glucose Lvl (test code = Glucose Lvl) 149 70-99 [facility]2023-04-20 05:00:00* Test Item Value Reference Range Interpretation Comme nts BUN (test code = BUN) 12 7-22 [facility]2023-04-20 05:00:00* Test Item Value Reference Range Interpretation Comme nts Creatinine Lvl (test code = Creatinine Lvl) 0.54 0.50-1.40 [facility]2023-04-20 05:00:00* Test Item Value Reference Range Interpretation Comme nts Sodium Lvl (test code = Sodium Lvl) 136 135-145 [facility]2023-04-20 05:00:00* Test Item Value Reference Range Interpretation Comme nts Potassium Lvl (test code = P otassium Lvl) 4.2 3.5-5.1 [facility]2023-04-20 05:00:00* Test Item Value Reference Range Interpretation Comme nts Chloride Lvl (test code = Chloride Lvl) 108 95-109 [facility]2023-04-20 05:00:00* Test Item Value Reference Range Interpretation Comme nts CO2 (test code = CO2) 23 24-32 [facility]2023-04-20 05:00:00* Test Item Value Reference Range Interpretation Comme nts Calcium Lvl (test code = Calcium Lvl) 8.4 8.5-10.5 [facility]2023-04-20 05:00:00* Test Item Value Reference Range Interpretation Comme nts AGAP (test code = AGAP) 9.2 10.0-20.0 [facility]2023-04-20 05:00:00* Test Item Value Reference Range Interpretation Comme nts eGFR (test code = eGFR) 106 [facility]2023-04-20 05:00:00* Test Item Value Reference Range Interpretation Comme nts Magnesium Lvl (test code = M agnesium Lvl) 2.2 1.8-2.4 [facility]2023-04-20 05:00:00* Test Item Value Reference Range Interpretation Comme nts Phosphorus (test code = Phosphorus) 2.5 2.5-4.5 [facility] AliceOrjmeelUGDBCJNPRR7338-95-90 05:00:00* Test Item Value Reference Range Interpretation Comme nts Segs (test code = Segs) 80.5 45.0-75.0 [facility] AliceKaslmutETVZHUMGMU1198-02-01 05:00:00* Test Item Value Reference Range Interpretation Comme nts Lymphocytes (test code = Lymphocytes) 9.4 20.0-40.0 [facility] AliceSwvbakaHBFJYRWAQQ1977-14-09 05:00:00* Test Item Value Reference Range Interpretation Comme nts Monocytes (test code = Monocytes) 10.0 2.0-12.0 [facility] AliceUmdhejnDMGTRVWPNI7365-03-22 05:00:00* Test Item Value Reference Range Interpretation Comme nts Basophils (test code = Basophils) 0.1 <=1.0 [facility] AliceVgdfvlqDIRMQMZFXS8561-78-09 05:00:00* Test Item Value Reference Range Interpretation Comme nts Neutrophils # (test code = N eutrophils #) 8.2 1.5-8.1 [facility] AliceItpbmrmIQHYLBDPYG0948-09-54 05:00:00* Test Item Value Reference Range Interpretation Comme nts Lymphocytes # (test code = L ymphocytes #) 1.0 1.0-5.5 [facility] AliceXtgbfrqYBRJZAQHDZ0586-81-55 05:00:00* Test Item Value Reference Range Interpretation Comme nts Monocytes # (test code = Monocytes #) 1.0 <=0.8 [facility] AliceQnsucviFOZECIITTD0146-18-13 05:00:00* Test Item Value Reference Range Interpretation Comme nts WBC (test code = WBC) 10.2 3.7-10.4 [facility] AlicePlyztguOLEVCYAPNK2214-87-43 05:00:00* Test Item Value Reference Range Interpretation Comme nts RBC (test code = RBC) 3.00 4.20-5.40 [facility] AliceBoymgeoILYZRJVYKM2627-52-72 05:00:00* Test Item Value Reference Range Interpretation Comme nts Hgb (test code = Hgb) 9.4 12.0-16.0 [facility] AliceJghbfaqILLPSWUKOF6991-11-15 05:00:00* Test Item Value Reference Range Interpretation Comme nts Hct (test code = Hct) 28.0 36.0-48.0 [facility] AlicePkokaspULFLSMOMFG1198-32-44 05:00:00* Test Item Value Reference Range Interpretation Comme nts MCV (test code = MCV) 93.3 80.0-98.0 [facility] AliceVvhbbjzKUADEBKLBL3592-06-12 05:00:00* Test Item Value Reference Range Interpretation Comme nts MCH (test code = MCH) 31.5 pg 27.0-31.0 [facility] AliceExkejfbUNCOHQLIRA1216-39-55 05:00:00* Test Item Value Reference Range Interpretation Comme nts MCHC (test code = MCHC) 33.7 32.0-36.0 [facility] AliceSajfrhqCLFHJESBCZ1425-57-09 05:00:00* Test Item Value Reference Range Interpretation Comme nts RDW (test code = RDW) 13.2 11.5-14.5 [facility] AliceNvpekceUPAVBMHVUS2035-86-76 05:00:00* Test Item Value Reference Range Interpretation Comme nts Platelet (test code = Platelet) 156 133-450 [facility] AliceMhorwhpTLCOAWCRSW9859-07-85 05:00:00* Test Item Value Reference Range Interpretation Comme nts MPV (test code = MPV) 8.1 7.4-10.4 [facility] AliceEhhbfymMVQFYUYXXK0556-14-72 20:00:00* Test Item Value Reference Range Interpretation Comme nts TEG Interp (test code = TEG Interp) Thrombelastograph results show shortened value of R. This finding is suggestive of enzymatic hypercoagulation. CPT:88849 [facility] AlicePsdlxrmCNYQSYXIIO6935-01-42 20:00:00* Test Item Value Reference Range Interpretation Comme nts R-time (test code = R-time) 3.3 min 5.0-10.0 [facility] AliceObxqptqJCZTVOKXKH4976-67-09 20:00:00* Test Item Value Reference Range Interpretation Comme nts K-time (test code = K-time) 1.4 min 1.0-3.0 [facility] AliceUndondvLVZKXAHHAK6852-49-86 20:00:00* Test Item Value Reference Range Interpretation Comme nts Angle (test code = Angle) 70.1 degrees 53.0-72.0 [facility] AliceMsjztkjDOVXLHPLNM9915-88-63 20:00:00* Test Item Value Reference Range Interpretation Comme nts Max Amp (test code = Max Amp) 64.4 mm 50.0-70.0 [facility] AliceMnoyksyIJLVSKHCRC5991-08-59 20:00:00* Test Item Value Reference Range Interpretation Comme nts G-value (test code = G-value) 9.0 4.5-11.0 [facility] AliceXsiughdWUWUNQVMBC9794-19-88 20:00:00* Test Item Value Reference Range Interpretation Comme nts Ly30 (test code = Ly30) 0.9 <=7.5 [facility] AlicePmasgkrFPOREFTYQQ1161-36-84 20:00:00* Test Item Value Reference Range Interpretation Comme nts Coag Index (test code = Coag Index) 2.7 1 <=3.0 [facility] AliceSmpjavpDUJLXTLNIS0483-70-07 20:00:00* Test Item Value Reference Range Interpretation Comme nts TEG Data (test code = TEG Data) See Note (02/04/23 3:00 PM) [facility] AliceOpbtxruBDURCMOCPC8381-01-30 20:00:00* Test Item Value Reference Range Interpretation Comme nts TEG Interp (test code = TEG Interp) Thrombelastograph results show shortened value of R. This finding is suggestive of enzymatic hypercoagulation. CPT:48786 [facility] AliceOjisofeOPBKGINDLB5937-49-06 20:00:00* Test Item Value Reference Range Interpretation Comme nts R-time (test code = R-time) 3.3 min 5.0-10.0 [facility] AliceBpqrrrxGATPQAWUWD1492-30-25 20:00:00* Test Item Value Reference Range Interpretation Comme nts K-time (test code = K-time) 1.4 min 1.0-3.0 [facility] AlicePcdhyahGEKEMUPNHB4991-86-79 20:00:00* Test Item Value Reference Range Interpretation Comme nts Angle (test code = Angle) 70.1 degrees 53.0-72.0 [facility] AliceSbrnjhzRATQWDTTKB2189-10-75 20:00:00* Test Item Value Reference Range Interpretation Comme nts Max Amp (test code = Max Amp) 64.4 mm 50.0-70.0 [facility] AliceZsandpzJVMVUKHSRW1060-33-25 20:00:00* Test Item Value Reference Range Interpretation Comme nts G-value (test code = G-value) 9.0 4.5-11.0 [facility] AliceJibwkdrAOGWRVBKOU3058-36-68 20:00:00* Test Item Value Reference Range Interpretation Comme nts Ly30 (test code = Ly30) 0.9 <=7.5 [facility]ZvwoteeTQZESPBYHV6281-08-[facility] 20:00:00* Test Item Value Reference Range Interpretation Comme nts Coag Index (test code = Coag Index) 2.7 1 -3.0-3.0 [facility] CenterBhuaxtgGFKOQFEJID9793-01-40 20:00:00* Test Item Value Reference Range Interpretation Comme nts TEG Data (test code = TEG Data) See Note (02/04/23 3:00 PM) [facility] SystemUauhwhuRXZWRPYEK5488-28-78 18:37:00* Test Item Value Reference Range Interpretation Comme nts POC A Source (test code = POC A Source) ART [facility]villeNptseuhTHGPWVZHS1358-36-58 18:37:00* Test Item Value Reference Range Interpretation Comme nts POC A Temp (test code = POC A Temp) 37.0 [facility] HospitalPbrcwyqCALZQWOVX8227-79-04 18:37:00* Test Item Value Reference Range Interpretation Comme nts POC A pH (test code = POC A pH) 7.34 1 7.35-7.45 [facility]villeAmosdkxXJIKGHGTH3986-84-62 18:37:00* Test Item Value Reference Range Interpretation Comme nts POC A PO2 (test code = POC A PO2) 169 80-100 [facility] HospitalYdywmyoQYRESPATR7543-65-57 18:37:00* Test Item Value Reference Range Interpretation Comme nts POC A PCO2 (test code = POC A PCO2) 45 35-45 [facility]villeBfdslxbDKBLKPZJG7366-75-23 18:37:00* Test Item Value Reference Range Interpretation Comme nts POC A HCO3 (test code = POC A HCO3) 24 22-26 [facility] BrownwoodZodohtzBVNLODHYI5652-20-03 18:37:00* Test Item Value Reference Range Interpretation Comme nts POC A BE (test code = POC A BE) -2 -2-2 [facility] HospitalUnbehhtXIHQIXNPA7848-03-45 18:37:00* Test Item Value Reference Range Interpretation Comme nts POC A O2 Sat (calc) (test co de = POC A O2 Sat (calc)) 99.4 95.0-100.0 [facility] HospitalGwqspxtMNPELJVCQ2098-83-97 18:37:00* Test Item Value Reference Range Interpretation Comme nts POC A Na (test code = POC A Na) 134 135-145 [facility] SystemXpactjlGQRRVKBPM6216-73-59 18:37:00* Test Item Value Reference Range Interpretation Comme nts POC A K (test code = POC A K) 4.2 3.5-5.1 [facility] SystemSnjphinLDLAJYNMY4400-11-78 18:37:00* Test Item Value Reference Range Interpretation Comme nts POC A Ca Ion (test code = POC A Ca Ion) 1.10 1.05-1. 25 [facility] SystemMoizidjOWZMNZCEI5117-37-38 18:37:00* Test Item Value Reference Range Interpretation Comme nts POC A Hgb Tot (test code = P OC A Hgb Tot) 10.2 12.0-16.0 [facility] SystemSybfrjjSXAOYCVSL6109-38-78 18:37:00* Test Item Value Reference Range Interpretation Comme nts POC A LA (test code = POC A LA) 1.2 0.5-2.2 [facility] SystemVmrnjhmWAQNSNMWC1901-36-92 18:37:00* Test Item Value Reference Range Interpretation Comme nts POC A Glu (test code = POC A Glu) 176 70-99 [facility] SystemZfjhcfhBIWZYCGCO6611-77-52 18:37:00* Test Item Value Reference Range Interpretation Comme nts POC A Hct (calc) (test code = POC A Hct (calc)) 31.0 36.0-48.0 [facility] SystemUkcrpemVMXCATBPX4704-85-46 18:37:00* Test Item Value Reference Range Interpretation Comme nts POC A Cl (test code = POC A Cl) 106 95-109 [facility] SystemJuwiqnbCXFAEZDEV9808-08-39 18:37:00* Test Item Value Reference Range Interpretation Comme nts POC A Ca Ion at pH 7.4 (test code = POC A Ca Ion at pH 7.4) 1.07 1.05-1.25 [place] 20971023-04-19 16:20:37* Test Item Value Reference Range Interpretation Comme nts RADRPT (test code = RADRPT) EXAM: XR CHEST 1 VIEWDATE: 02/04/2023 8:00Age: 57 years y/o FemaleINDICATION: - tobacco userCOMPARISON: January 29, 2023.TECHNIQUE: AP chest.IMPRESSION: Lines/tubes: Telemetry leads are superimposed on the patient's chest.Heart and mediastinum: The cardiomediastinal silhouette is stable. Aortic vascular wall calcifications are noted. Lungs: There is volume loss in the right upper lobe. The lungs are otherwise clear.Pleura: The costophrenic sulci are sharp without evidence of pleural effusion. No pneumothorax is identified on this portable radiograph.Musculoskeletal: The regional skeleton is unchanged. Osseous fractures are better characterized on recent CT. [facility]woodEl[facility] EWNJZCE8492-18-07 15:47:00* Test Item Value Reference Range Interpretation Comme [facility] FFP product (test code = FFP product) Product available (02/04/23 10:47 AM) [facility] [id number] 15:47:00* Test Item Value Reference Range Interpretation Comme [facility] FFP product (test code = FFP product) Product available (02/04/23 10:47 AM) [facility] [id number] 15:46:00* Test Item Value Reference Range Interpretation Comme [facility] RBC product (test code = RBC product) Product available (02/04/23 10:46 AM) [facility] [id number] 15:46:00* Test Item Value Reference Range Interpretation Comme [facility] RBC product (test code = RBC product) Product available (02/04/23 10:46 AM) [place] [id number] 14:19:46* Test Item Value Reference Range Interpretation Comme nts RADRPT (test code = RADRPT) EXAM: XR LEFT FEMUR 2 VIEWSEXAM: XR LEFT KNEE 3 VIEWSDATE: 02/04/2023 8:00INDICATION: - fractureCOMPARISON: None.TECHNIQUE: 2 views of the femur, 3 views of the kneeFINDINGS:Generalized bony demineralization is present.Femur: No acute fracture or malalignment is identified. Minimal greater trochanteric enthesophyte formation.Knee: No acute fracture or malalignment is identified. Trace knee joint effusion.Soft tissues: No soft tissue abnormality is identified.IMPRESSION: No acute abnormality. [place] [id number] 14:19:46* Test Item Value Reference Range Interpretation Comme nts RADRPT (test code = RADRPT) EXAM: XR LEFT FEMUR 2 VIEWSEXAM: XR LEFT KNEE 3 VIEWSDATE: 02/04/2023 8:00INDICATION: - fractureCOMPARISON: None.TECHNIQUE: 2 views of the femur, 3 views of the kneeFINDINGS:Generalized bony demineralization is present.Femur: No acute fracture or malalignment is identified. Minimal greater trochanteric enthesophyte formation.Knee: No acute fracture or malalignment is identified. Trace knee joint effusion.Soft tissues: No soft tissue abnormality is identified.IMPRESSION: No acute abnormality. [facility] BrownwoodXbeaevbWUZZGMLFP0566-99-35 08:11:00* Test Item Value Reference Range Interpretation Comme nts U Amph Scr (test code = U Amph Scr) Negative *NA*(02/04/23 3:11 AM) [facility]villeFaplkvuCUYKYAPOK1960-91-82 08:11:00* Test Item Value Reference Range Interpretation Comme nts U Hilda Scr (test code = U Hilda Scr) Negative *NA*(02/04/23 3:11 AM) [facility]villeNewketvSGZXJDUEK4740-16-93 08:11:00* Test Item Value Reference Range Interpretation Comme nts U Benzodiaz Scr (test code = U Benzodiaz Scr) Negative *NA*(02/04/23 3:11 AM) [facility] BrownwoodPnrupytOOYRUCABY9139-75-62 08:11:00* Test Item Value Reference Range Interpretation Comme nts U Cocaine Scr (test code = U Cocaine Scr) Negative *NA*(02/04/23 3:11 AM) [facility] BrownwoodHjbunjvCMGKTJQXJ2711-17-97 08:11:00* Test Item Value Reference Range Interpretation Comme nts U Cannab Scr (test code = U Cannab Scr) Positive *ABN*(02/04/23 3:11 AM) [facility] BrownwoodPeeibdeCRZBYOBOM6924-34-29 08:11:00* Test Item Value Reference Range Interpretation Comme nts U Opiate Scr (test code = U Opiate Scr) Positive *ABN*(02/04/23 3:11 AM) [facility]villeZbhaadfEEXWLCBFB9626-50-25 08:11:00* Test Item Value Reference Range Interpretation Comme nts U Phencyclidine Scr (test code = U Phencyclidine Scr) Negative *NA*(02/04/23 3:11 AM) [facility] BrownwoodAtxeiylLFTSTLMPQ7518-80-07 08:11:00* Test Item Value Reference Range Interpretation Comme nts UDS Note (test code = UDS Note) See Note (02/04/23 3:11 AM) [facility] [id number] 08:11:00* Test Item Value Reference Range Interpretation Comme nts U Amph Scr (test code = U Amph Scr) Negative *NA*(02/04/23 3:11 AM) [facility] KSHGQE5813-27-89 08:11:00* Test Item Value Reference Range Interpretation Comme nts U Hilda Scr (test code = U Hilda Scr) Negative *NA*(02/04/23 3:11 AM) [facility] EHVTJE9619-60-43 08:11:00* Test Item Value Reference Range Interpretation Comme nts U Benzodiaz Scr (test code = U Benzodiaz Scr) Negative *NA*(02/04/23 3:11 AM) [facility] HQVWSH7531-68-70 08:11:00* Test Item Value Reference Range Interpretation Comme nts U Cocaine Scr (test code = U Cocaine Scr) Negative *NA*(02/04/23 3:11 AM) [facility] IKRSZU1222-31-23 08:11:00* Test Item Value Reference Range Interpretation Comme nts U Cannab Scr (test code = U Cannab Scr) Positive *ABN*(02/04/23 3:11 AM) [facility] [id number] 08:11:00* Test Item Value Reference Range Interpretation Comme nts U Opiate Scr (test code = U Opiate Scr) Positive *ABN*(02/04/23 3:11 AM) [facility] [id number] 08:11:00* Test Item Value Reference Range Interpretation Comme nts U Phencyclidine Scr (test code = U Phencyclidine Scr) Negative *NA*(02/04/23 3:11 AM) [facility] [id number] 08:11:00* Test Item Value Reference Range Interpretation Comme nts UDS Note (test code = UDS Note) See Note (02/04/23 3:11 AM) [facility] [id number] 08:11:00* Test Item Value Reference Range Interpretation Comme nts UA Color (test code = UA Color) Yellow *NA*(02/04/23 3:11 AM) [facility] [id number] 08:11:00* Test Item Value Reference Range Interpretation Comme nts UA Turbidity (test code = UA Turbidity) Clear (02/04/23 3:11 AM) [facility] [id number] 08:11:00* Test Item Value Reference Range Interpretation Comme nts UA Spec Grav (test code = UA Spec Grav) 1.047 1 [facility] AND [id number] 08:11:00* Test Item Value Reference Range Interpretation Comme nts UA pH (test code = UA pH) 6.0 1 5.0-8.0 [facility] [id number] 08:11:00* Test Item Value Reference Range Interpretation Comme nts UA Protein (test code = UA Protein) Negative mg/dL [facility] AND [id number] 08:11:00* Test Item Value Reference Range Interpretation Comme nts UA Glucose (test code = UA Glucose) Negative mg/dL [facility] AND [id number] 08:11:00* Test Item Value Reference Range Interpretation Comme nts UA Ketones (test code = UA Ketones) Trace mg/dL [facility] [id number] 08:11:00* Test Item Value Reference Range Interpretation Comme nts UA Bili (test code = UA Bili) Negative *NA*(02/04/23 3:11 AM) [facility]woodann[facility] AND [id number] 08:11:00* Test Item Value Reference Range Interpretation Comme nts UA Blood (test code = UA Blood) Negative (02/04/23 3:11 AM) [facility]wood[facility] AND [id number] 08:11:00* Test Item Value Reference Range Interpretation Comme nts UA Urobilinogen (test code = UA Urobilinogen) no gt 0.1-1.0 [facility] AND [id number] 08:11:00* Test Item Value Reference Range Interpretation Comme nts UA Nitrite (test code = UA Nitrite) Negative (02/04/23 3:11 AM) [facility] [id number] 08:11:00* Test Item Value Reference Range Interpretation Comme nts UA Leuk Est (test code = UA Leuk Est) Negative (02/04/23 3:11 AM) [facility] [id number] 08:11:00* Test Item Value Reference Range Interpretation Comme nts UA Ascorbic Acid (test code = UA Ascorbic Acid) Negative 6*NA*(02/04/23 3:11 AM) [facility] [id number] 08:11:00* Test Item Value Reference Range Interpretation Comme nts UA Sq Epi (test code = UA Sq Epi) Occasional /LPF [facility] [id number] 08:11:00* Test Item Value Reference Range Interpretation Comme nts UA WBC (test code = UA WBC) 1 <=5 [facility] [id number] 08:11:00* Test Item Value Reference Range Interpretation Comme nts UA RBC (test code = UA RBC) 2 <=2 [facility] [id number] 08:11:00* Test Item Value Reference Range Interpretation Comme nts UA Bacteria (test code = UA Bacteria) Occasional /HPF [facility] [id number] 08:11:00* Test Item Value Reference Range Interpretation Comme nts UA Color (test code = UA Color) Yellow *NA*(02/04/23 3:11 AM) [facility] [id number] 08:11:00* Test Item Value Reference Range Interpretation Comme nts UA Turbidity (test code = UA Turbidity) Clear (02/04/23 3:11 AM) [facility] [id number] 08:11:00* Test Item Value Reference Range Interpretation Comme nts UA Spec Grav (test code = UA Spec Grav) 1.047 1 [facility] [id number] 08:11:00* Test Item Value Reference Range Interpretation Comme nts UA pH (test code = UA pH) 6.0 1 5.0-8.0 [facility] [id number] 08:11:00* Test Item Value Reference Range Interpretation Comme nts UA Protein (test code = UA Protein) Negative mg/dL [facility] [id number] 08:11:00* Test Item Value Reference Range Interpretation Comme nts UA Glucose (test code = UA Glucose) Negative mg/dL [facility] [id number] 08:11:00* Test Item Value Reference Range Interpretation Comme nts UA Ketones (test code = UA Ketones) Trace mg/dL [facility] [id number] 08:11:00* Test Item Value Reference Range Interpretation Comme nts UA Bili (test code = UA Bili) Negative *NA*(02/04/23 3:11 AM) [facility] [id number] 08:11:00* Test Item Value Reference Range Interpretation Comme nts UA Blood (test code = UA Blood) Negative (02/04/23 3:11 AM) [facility] [id number] 08:11:00* Test Item Value Reference Range Interpretation Comme nts UA Urobilinogen (test code = UA Urobilinogen) no gt 0.1-1.0 [facility] [id number] 08:11:00* Test Item Value Reference Range Interpretation Comme nts UA Nitrite (test code = UA Nitrite) Negative (02/04/23 3:11 AM) [facility] [id number] 08:11:00* Test Item Value Reference Range Interpretation Comme nts UA Leuk Est (test code = UA Leuk Est) Negative (02/04/23 3:11 AM) [facility] [id number] 08:11:00* Test Item Value Reference Range Interpretation Comme nts UA Ascorbic Acid (test code = UA Ascorbic Acid) Negative 2*NA*(02/04/23 3:11 AM) [facility] [id number] 08:11:00* Test Item Value Reference Range Interpretation Comme nts UA Sq Epi (test code = UA Sq Epi) Occasional /LPF [facility] [id number] 08:11:00* Test Item Value Reference Range Interpretation Comme nts UA WBC (test code = UA WBC) 1 <=5 [facility] [id number] 08:11:00* Test Item Value Reference Range Interpretation Comme nts UA RBC (test code = UA RBC) 2 <=2 [facility] [id number] 08:11:00* Test Item Value Reference Range Interpretation Comme nts UA Bacteria (test code = UA Bacteria) Occasional /HPF [facility] BrownwoodDnzygcgQDQQPB8633-44-75 04:31:22* Test Item Value Reference Range Interpretation Jessee garcia RADRPT (test code = RADRPT) EXAM: MRI CERVICAL SPINE WITHOUT CONTRASTDATE: 02/03/2023INDICATION: - stenosis.COMPARISON: Cervical spine CT dated 02/03/2023TECHNIQUE: Multiplanar, multisequence, noncontrast MR imaging of the cervical spine.IV contrast: NoneFINDINGS: Numbering: There are 7 cervical, nonrib-bearing vertebrae.Alignment: Preserved lordosis. No spondylolisthesis.Bones: * Fracture of the anterior superior corner of C6, with bone marrow edema in the superior half of the vertebral body.* Bone marrow edema in the posterior half of the C7 vertebral body, without loss of height, consistent with bone marrow contusion. Spinal cord: Normal in size and signal.Discoligamentous complex:* There is widening of the intervertebral disc space at C5-C6 anteriorly, with disruption of the anterior annulus fibrosis and anterior longitudinal ligament, consistent with hyperextension injury.* Edema of the interspinous space without widening at C3-C4, C4-C5, and C5-C6, with edema of the nuchal ligament.* Extensive prevertebral edema from the skull base through C5-F3Mzifvjhldx levels:* Craniocervical junction: Intact.* C2-C3: Desiccation of the disc with normal contour. The spinal canal and the neural foramina are patent.* C3-C4: Minimal diffuse bulging of the disc causing effacement of the ventral subarachnoid space. Bilateral neural foraminal narrowing secondary to uncovertebral and facet joint hypertrophy.* C4-C5: Disc osteophyte complex causing effacement of the ventral subarachnoid space. Bilateral neural foraminal narrowing secondary to uncovertebral and facet joint hypertrophy.* C5-C6: Narrowing of the spinal canal secondary to disc osteophyte complex and hypertrophy of the facet joints and ligamenta flava. There is significant remodeling of the cord, with decreased AP diameter but no significant cord edema. Bilateral neural foraminal narrowing secondary to uncovertebral and facet joint hypertrophy.* C6-C7: Loss of height of the disc with a left paracentral disc osteophyte complex. There is no significant narrowing of the spinal canal. Moderate narrowing of the left neural foramen secondary to uncovertebral and facet joint hypertrophy.* C7-T1: Minimal bulging of the disc not causing narrowing of the spinal canal or the neural foramina.Other: The included soft tissues are unremarkable. The normal T2 hypointense flow voids of the larger arteries in the neck are maintained.IMPRESSION: 1. Anterior band disruption at C5-C6 with widening of the intervertebral vertebral disc space, disruption of the annulus fibrosus, and disruption of the anterior longitudinal ligament. 2. Fracture of the anterior superior corner of C6.3. Bone marrow contusion of the C7 vertebral body.4. Narrowing of the spinal canal at C5-C6 causing remodeling of the cord but no cord edema. [facility]UxsxqfyVVKLVR9077-38-51 00:59:36* Test Item Value Reference Range Interpretation Comme nts RADRPT (test code = RADRPT) EXAM: XR LEFT HAND 3 VIEWSEXAM: XR LEFT WRIST 3 VIEWSDATE: 02/03/2023 19:43INDICATION: - Post splintCOMPARISON: Same day wrist and hand x-raysUT SECTION: ERTECHNIQUE: 3 views of the hand, 3 views of the wristFINDINGS: Wrist: Interval splint placement with improved alignment of comminuted intra-articular distal radius fracture with minimal volar displacement. Unchanged alignment of ulnar styloid avulsion fracture. Hand: Unchanged alignment of comminuted spiral fracture of the fifth metacarpal shaft.Soft tissues: Soft tissue evaluation is limited due to overlying splint.IMPRESSION: 1. Interval splint placement with improved alignment of intra-articular distal radius fracture.2. Unchanged alignment of ulnar styloid and fifth metacarpal shaft fractures. [facility] AliceWelakkdCHXSTKNPBB0539-01-96 20:56:00* Test Item Value Reference Range Interpretation Comme nts PT (test code = PT) 13.6 s 12.0-14.7 [facility] AliceKkwayglGQQRSAFFFO2597-56-54 20:56:00* Test Item Value Reference Range Interpretation Comme nts PTT (test code = PTT) 27.6 s 22.9-35.8 [facility] AliceSuxigvqGNFWEYSFMD5485-45-41 20:56:00* Test Item Value Reference Range Interpretation Comme nts INR (test code = INR) 1.04 1 0.85-1.17 [facility] AliceMadaebpBPNLWQXYHO5916-70-20 20:56:00* Test Item Value Reference Range Interpretation Comme nts PT (test code = PT) 13.6 s 12.0-14.7 [facility]woodGrdxjwoVTUEGVZHOI0915-90-12 20:56:00* Test Item Value Reference Range Interpretation Comme nts PTT (test code = PTT) 27.6 s 22.9-35.8 [facility]TDXYXISR5641-47-52 20:56:00* Test Item Value Reference Range Interpretation Comme nts INR (test code = INR) 1.04 1 0.85-1.17 [facility] BrownwoodTiperegLBMVERBIXQ8973-38-79 20:56:00* Test Item Value Reference Range Interpretation Comme nts Coronavirus (COVID-19) BASILIO (test code = Coronavirus (COVID-19) BASILIO) Not Detected (02/03/23 3:56 PM) [facility]villeWwoftomTLESCIWYWS0562-51-08 20:56:00* Test Item Value Reference Range Interpretation Comme nts Coronavirus (COVID-19) BASILIO (test code = Coronavirus (COVID-19) BASILIO) Not Detected (02/03/23 3:56 PM) [facility] BrownwoodannCARDIAC XMGCDSL5198-36-17 19:15:00* Test Item Value Reference Range Interpretation Comme nts HS Troponin I (test code = H S Troponin I) 13 [facility]villeCHEM BQZHP5181-38-29 19:15:00* Test Item Value Reference Range Interpretation Comme nts Lactic Acid Lvl (test code = Lactic Acid Lvl) 1.6 0.5-2.2 [facility]woodKjsxfzfDBKSQLMCO1153-62-91 19:15:00* Test Item Value Reference Range Interpretation Comme nts Ethanol Lvl (test code = Ethanol Lvl) no gt [facility] BrownwoodVwmovppBSJTGCDLY4061-57-48 19:15:00* Test Item Value Reference Range Interpretation Comme nts Etoh (%) (test code = Etoh (%)) no gt [facility] BrownwoodLdpycxuLNRBWLTGQ4695-91-02 19:15:00* Test Item Value Reference Range Interpretation Comme nts Lactic Acid Lvl (test code = Lactic Acid Lvl) 1.6 0.5-2.2 [facility] BrownwoodBetjqbbFQRLNCWYI0598-82-69 19:15:00* Test Item Value Reference Range Interpretation Comme nts HS Troponin I (test code = H S Troponin I) 13 [facility]IdfsxpvACXNFKMXV8445-54-26 19:15:00* Test Item Value Reference Range Interpretation Comme nts Temp Glynn (test code = Temp Glynn) 37.0 [facility] SystemVhqlmvhGSCXMOYBM6843-74-85 19:15:00* Test Item Value Reference Range Interpretation Comme nts pH Glynn (test code = pH Glynn) 7.33 1 7.28-7.42 [facility] SystemObrqwnfSIDMBMYHM9475-50-82 19:15:00* Test Item Value Reference Range Interpretation Comme nts pCO2 Glynn (test code = pCO2 Glynn) 48 38-52 [facility] SystemGnpftwbUDMHQNHLI8846-24-65 19:15:00* Test Item Value Reference Range Interpretation Comme nts pO2 Glynn (test code = pO2 Glynn) 45 20-49 [facility] SystemObwykboWJHWNILTR5345-27-69 19:15:00* Test Item Value Reference Range Interpretation Comme nts HCO3 Glynn (test code = HCO3 Glynn) 25 22-26 [facility] SystemDpwnbicODPDPGCZV8619-51-59 19:15:00* Test Item Value Reference Range Interpretation Comme nts BE Glynn (test code = BE Glynn) -1 -2-2 [facility] SystemAhaxetlNCTCQATSK3325-47-63 19:15:00* Test Item Value Reference Range Interpretation Comme nts O2 Sat Glynn (calc) (test code = O2 Sat Glynn (calc)) 77.0 40.0-70.0 [facility] AliceBlzqqmkWKUUZLQTLR6194-21-30 19:15:00* Test Item Value Reference Range Interpretation Comme nts ACT (TEG) Rapid (test code = ACT (TEG) Rapid) 113 s 86-118 [facility] AliceVqhukvoRRPIMYPWFQ0607-90-29 19:15:00* Test Item Value Reference Range Interpretation Comme nts Split Point Rapid (test code = Split Point Rapid) 0.6 min [facility] AliceAnnldlhYLAMQQWCIA1266-94-19 19:15:00* Test Item Value Reference Range Interpretation Comme nts R-time Rapid (test code = R- time Rapid) 0.7 min 0.4-0.7 [facility] AliceDkeiqrwCBBSBXROFD4592-67-76 19:15:00* Test Item Value Reference Range Interpretation Comme nts K-time Rapid (test code = K- time Rapid) 1.2 min 0.6-2.3 [facility] AliceQvjsruzVJNUJXGLOF8044-93-99 19:15:00* Test Item Value Reference Range Interpretation Comme nts Angle Rapid (test code = Ang le Rapid) 76 degrees 64-80 [facility] AliceDbimxjlROXNLIAMCH6745-82-60 19:15:00* Test Item Value Reference Range Interpretation Comme nts Max Amplitude Rapid (test co de = Max Amplitude Rapid) 66 mm 52-71 [facility] AliceQesubpqGISPFWZLQE7992-04-52 19:15:00* Test Item Value Reference Range Interpretation Comme nts G-value Rapid (test code = G -value Rapid) 9.6 5.0-11.6 [facility] AliceLssawotEGSPSSQTUZ8169-45-56 19:15:00* Test Item Value Reference Range Interpretation Comme nts Estimated % Lysis Rapid (dav t code = Estimated % Lysis Rapid) 0.6 <=7.5 [facility] AliceWxqlfxlZWRSJOJQQP8573-34-85 19:15:00* Test Item Value Reference Range Interpretation Comme nts Eosinophils (test code = Eosinophils) 2.1 <=4.0 [facility] AliceHjzpzlkYDHDCERVXC0487-72-11 19:15:00* Test Item Value Reference Range Interpretation Comme nts Eosinophils # (test code = E osinophils #) 0.4 <=0.5 [facility] AliceCabvrjmBZKYIDTKWM6552-03-08 19:15:00* Test Item Value Reference Range Interpretation Comme nts Basophils # (test code = Basophils #) 0.1 <=0.2 [facility] AlicePmxdrveXQNOONUKAI2629-40-22 19:15:00* Test Item Value Reference Range Interpretation Comme nts ACT (TEG) Rapid (test code = ACT (TEG) Rapid) 113 s 86-118 [facility] AliceOoaoqmoKGHZWXTXOM2593-09-58 19:15:00* Test Item Value Reference Range Interpretation Comme nts Split Point Rapid (test code = Split Point Rapid) 0.6 min [facility] AliceWznhhhaVOTVPGZFQB5682-86-71 19:15:00* Test Item Value Reference Range Interpretation Comme nts R-time Rapid (test code = R- time Rapid) 0.7 min 0.4-0.7 [facility] AliceLxugferCOSLEBDWSC0035-45-24 19:15:00* Test Item Value Reference Range Interpretation Comme nts K-time Rapid (test code = K- time Rapid) 1.2 min 0.6-2.3 [facility] AliceWzunktiWZOALQPMZT5428-91-70 19:15:00* Test Item Value Reference Range Interpretation Comme nts Angle Rapid (test code = Ang le Rapid) 76 degrees 64-80 [facility] BrownwoodQnxdppaTDSDRQNKQQ6885-84-41 19:15:00* Test Item Value Reference Range Interpretation Comme nts Max Amplitude Rapid (test co de = Max Amplitude Rapid) 66 mm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
--- NOTE | 2023-11-12 13:16 | ER ---
Nurse's Notes [facility] Name: Beba Griffin Age: 58 yrs Sex: Female : 1965 Arrival Date: 11/12/2023 Time: 11:57 Bed 12 Private MD: Diagnosis: Injury of conjunctiva and corneal abrasion without foreign body, left eye Presentation: 11/12 12:03 Chief complaint: Patient states: Left eye pain 2-3 weeks. Denies injury. Left eye red ld1 and swollen. Coronavirus screen: At this time, the client does not indicate any symptoms associated with coronavirus-19. Ebola Screen: No symptoms or risks identified at this time. The patient denies any loss of vision. Initial Sepsis Screen: Does the patient meet any 2 criteria? No. Patient's initial sepsis screen is negative. Does the patient have a suspected source of infection? No. Patient's initial sepsis screen is negative. Risk Assessment: Do you want to hurt yourself or someone else? Patient reports no desire to harm self or others. Onset of symptoms was November 12, 2023 at 12:04. 12:03 Method Of Arrival: Ambulatory ld1 12:03 Acuity: PALLAVI 4 ld1 Triage Assessment: 12:03 General: Appears in no apparent distress. uncomfortable, Behavior is calm, cooperative, ld1 appropriate for age. Pain: Complains of pain in left eye Pain does not radiate. Pain currently is 8 out of 10 on a pain scale. Quality of pain is described as throbbing, Pain began 2-3 weeks. EENT: Eyes left eye red and swollen. Neuro: Level of Consciousness is awake, alert, obeys commands, Oriented to person, place, time, situation. Cardiovascular: Capillary refill < 3 seconds Patient's skin is warm and dry. Respiratory: Airway is patent Respiratory effort is even, unlabored. GI: Abdomen is flat, non-distended. Historical: - Allergies: 12:02 No Known Allergies; ld1 - PMHx: 12:02 Bipolar disorder; Depression; ld1 - PSHx: 12:02 section; ld1 - Immunization history:: Adult Immunizations up to date, Client reports having NOT received the Covid vaccine. - Social history:: Smoking status: Patient reports the use of cigarette tobacco products, smokes one-half pack cigarettes per day, Patient/guardian denies using alcohol. - Family history:: not pertinent. Screenin:36 [facility] ED Fall Risk Assessment (Adult) History of falling in the last 3 months, cm10 including since admission No falls in past 3 months (0 pts) Confusion or Disorientation No (0 pts) Intoxicated or Sedated No (0 pts) Impaired Gait No (0 pts) Mobility Assist Device Used No (0 pt) Altered Elimination No (0 pt) Score/Fall Risk Level 0 - 2 = Low Risk Oriented to surroundings, Maintained a safe environment, Hourly rounding (assess needs \T\ fall precautionary measures) done. Abuse screen: Denies threats or abuse. Denies injuries from another. Nutritional screening: No deficits noted. Tuberculosis screening: No symptoms or risk factors identified. Assessment: 12:56 Reassessment: See triage assessment. ERP at bedside with patient. ld1 13:25 Reassessment: Patient appears in no apparent distress at this time. No changes from ld1 previously documented assessment. Patient and/or family updated on plan of care and expected duration. Pain level reassessed. Patient is alert, oriented x 3, equal unlabored respirations, skin warm/dry/pink. 14:00 Reassessment: Called pt via telephone per MD to clarify to go to Dr. Lo's office aa5 today, pt verbalized understanding. . Vital Signs: 12:03 BP 170 / 94; Pulse 73; Resp 18; Temp 98(TE); Pulse Ox 96% on R/A; Weight 70.31 kg; ld1 Height 5 ft. 6 in. ; Pain 8/10; 13:25 BP 155 / 91; Pulse 70; Resp 18; Pulse Ox 97% on R/A; ld1 12:03 Body Mass Index 25.02 (70.31 kg, 167.64 cm) ld1 12:03 Pain Scale: Adult ld1 ED Course: 12:00 Patient arrived in ED. mg5 12:03 Arm band placed on right wrist. ld1 12:04 Valeriy Zhu MD is Attending Physician. laura 12:04 Triage completed. ld1 12:36 Patient has correct armband on for positive identification. Bed in low position. Call cm10 light in reach. Provided Education on: ER process and procedures.. 12:56 Marisa Turner, MEENAKSHI is Primary Nurse. ld1 12:57 No provider procedures requiring assistance completed. Patient did not have IV access ld1 during this emergency room visit. 13:15 Erwin Lo MD is Referral Physician. [facility] Administered Medications: 12:56 Drug: Tetracaine Ophthalmic Drops 0.5 % 1 drops Ophthalmic once {Note: by Dr. rupinder Zhu.} Route: Ophthalmic; Site: left eye; 12:56 Drug: Fluorescein Ophthalmic Strip 1 strip Ophthalmic once Route: Ophthalmic; Site: ld1 left eye; 13:25 Drug: [place] PO 10 mg-325 mg 1 tabs PO once Route: PO; ld1 13:25 Not Given (Other Intervention Used): moxifloxacin Drops 0.5 % (Moxeza) 1 drops ld1 Ophthalmic once 13:25 Not Given (Other Intervention Used): trimethoprim-sulfamethoxazole(160 mg-800 mg (ds) 1 ld1 tablet PO once Medication: 12:36 VIS not applicable for this client. cm10 Outcome: 13:15 Discharge ordered by . [facility] 13:25 Discharged to home ambulatory, ld1 13:25 Condition: stable 13:25 Discharge instructions given to patient, Instructed on discharge instructions, follow up and referral plans. Demonstrated understanding of instructions, follow-up care, medications, Prescriptions given X 3, 13:25 Patient left the ED. ld1 Signatures: Valeriy Zhu MD MD cha Calderon, Audri, RN RN aa5 Marisa Turner RN RN ld1 Dyan Chang RN RN cm10 Deborah Mcfarlane mg5 Corrections: (The following items were deleted from the chart) 12:03 12:02 PSHx: None; ld1 ld1
--- NOTE | 2023-11-12 13:16 | EDPHYS ---
Physician Documentation [facility] Name: Beba Griffin Age: 58 yrs Sex: Female : 1965 Arrival Date: 11/12/2023 Time: 11:57 Bed 12 Private MD: ED Physician Valeriy Zhu HPI: 11/12 13:07 This 58 yrs old [place] Female presents to ER via Ambulatory with complaints of Eye laura Pain. 13:07 The patient is experiencing burning, pain, redness, The patient sustained an abrasion, laura to the left eye. Onset: The symptoms/episode began/occurred 2 week(s) ago. Duration: the symptoms are continuous. Aggravated by blinking, opening eye, rubbing, Alleviated by blinking, covering eye. Associated signs and symptoms: Pertinent positives: None. Pertinent negatives: None. Patient wears glasses. Severity of symptoms: At their worst the symptoms were moderate in the emergency department the symptoms are unchanged. The patient has not experienced similar symptoms in the past. Historical: - Allergies: 12:02 No Known Allergies; ld1 - PMHx: 12:02 Bipolar disorder; Depression; ld1 - PSHx: 12:02 section; ld1 - Immunization history:: Adult Immunizations up to date, Client reports having NOT received the Covid vaccine. - Social history:: Smoking status: Patient reports the use of cigarette tobacco products, smokes one-half pack cigarettes per day, Patient/guardian denies using alcohol. - Family history:: not pertinent. ROS: 13:07 Constitutional: Negative for fever, chills, and weight loss, ENT: Negative for injury, laura pain, and discharge, Neck: Negative for injury, pain, and swelling, Cardiovascular: Negative for chest pain, palpitations, and edema, Respiratory: Negative for shortness of breath, cough, wheezing, and pleuritic chest pain, Abdomen/GI: Negative for abdominal pain, nausea, vomiting, diarrhea, and constipation, Back: Negative for injury and pain, : Negative for injury, bleeding, discharge, and swelling, MS/Extremity: Negative for injury and deformity, Skin: Negative for injury, rash, and discoloration, Neuro: Negative for headache, weakness, numbness, tingling, and seizure, Psych: Negative for depression, anxiety, suicide ideation, homicidal ideation, and hallucinations, Allergy/Immunology: Negative for hives, rash, and allergies, Endocrine: Negative for neck swelling, polydipsia, polyuria, polyphagia, and marked weight changes, Hematologic/Lymphatic: Negative for swollen nodes, abnormal bleeding, and unusual bruising, 13:07 Eyes: Positive for pain, photophobia, redness, Exam: 13:07 Constitutional: This is a well developed, well nourished patient who is awake, alert, laura and in no acute distress. Head/Face: Normocephalic, atraumatic. ENT: Nares patent. No nasal discharge, no septal abnormalities noted. Tympanic membranes are normal and external auditory canals are clear. Oropharynx with no redness, swelling, or masses, exudates, or evidence of obstruction, uvula midline. Mucous membranes moist. Neck: Trachea midline, no thyromegaly or masses palpated, and no cervical lymphadenopathy. Supple, full range of motion without nuchal rigidity, or vertebral point tenderness. No Meningismus. Chest/axilla: Normal chest wall appearance and motion. Nontender with no deformity. No lesions are appreciated. Cardiovascular: Regular rate and rhythm with a normal S1 and S2. No gallops, murmurs, or rubs. Normal PMI, no JVD. No pulse deficits. Respiratory: Lungs have equal breath sounds bilaterally, clear to auscultation and percussion. No rales, rhonchi or wheezes noted. No increased work of breathing, no retractions or nasal flaring. Abdomen/GI: Soft, non-tender, with normal bowel sounds. No distension or tympany. No guarding or rebound. No evidence of tenderness throughout. Back: No spinal tenderness. No costovertebral tenderness. Full range of motion. Female : Normal external genitalia. Skin: Warm, dry with normal turgor. Normal color with no rashes, no lesions, and no evidence of cellulitis. MS/ Extremity: Pulses equal, no cyanosis. Neurovascular intact. Full, normal range of motion. Neuro: Awake and alert, GCS 15, oriented to person, place, time, and situation. Cranial nerves II-XII grossly intact. Motor strength 5/5 in all extremities. Sensory grossly intact. Cerebellar exam normal. Normal gait. Psych: Awake, alert, with orientation to person, place and time. Behavior, mood, and affect are within normal limits. 13:07 Eyes: Periorbital structures: cellulitis, erythema, that is mild, on the left supraorbital ridge and left upper eyelid, Pupils: no acute changes, equal, round, and reactive to light and accomodation, Extraocular movements: intact throughout, Conjunctiva: injected, Corneas: abrasion, that is moderate sized, a fluorescein strip employed to appreciate the findings, Sclera: injection, Anterior chamber: no acute changes, Lids and lashes: erythema, on the left, Visual garcía: are intact, Nystagmus: is not appreciated, Vital Signs: 12:03 BP 170 / 94; Pulse 73; Resp 18; Temp 98(TE); Pulse Ox 96% on R/A; Weight 70.31 kg; ld1 Height 5 ft. 6 in. ; Pain 8/10; 13:25 BP 155 / 91; Pulse 70; Resp 18; Pulse Ox 97% on R/A; ld1 12:03 Body Mass Index 25.02 (70.31 kg, 167.64 cm) ld1 12:03 Pain Scale: Adult ld1 MDM: 12:04 Patient medically screened. [facility] 13:14 Differential diagnosis: Corneal abrasion of left eye. Data reviewed: vital signs, [facility] nurses notes. Consideration of Admission/Observation Escalation of care including admission/observation considered. I considered the following discharge prescriptions or medication management in the emergency department Medications were administered in the Emergency Department. See MAR. Test considered but Not performed: Labs: no labs. Care significantly affected by the following chronic conditions: bipolar, depression. 11/12 12:55 Order name: Eye Tray; Complete Time: 12:55 [email or web address] Administered Medications: 12:56 Drug: Tetracaine Ophthalmic Drops 0.5 % 1 drops Ophthalmic once {Note: by Dr. rupinder Zhu.} Route: Ophthalmic; Site: left eye; 12:56 Drug: Fluorescein Ophthalmic Strip 1 strip Ophthalmic once Route: Ophthalmic; Site: ld1 left eye; 13:25 Drug: [place] PO 10 mg-325 mg 1 tabs PO once Route: PO; ld1 13:25 Not Given (Other Intervention Used): moxifloxacin Drops 0.5 % (Moxeza) 1 drops ld1 Ophthalmic once 13:25 Not Given (Other Intervention Used): trimethoprim-sulfamethoxazole(160 mg-800 mg (ds) 1 ld1 tablet PO once Disposition Summary: 11/12/23 13:15 Discharge Ordered Notes: Location: Home [facility] Problem: an ongoing problem laura Symptoms: have worsened laura Condition: Stable laura Diagnosis - Injury of conjunctiva and corneal abrasion without foreign body, left eye laura Followup: [facility] - With: Erwin Lo MD - When: Upon discharge from the Emergency Department - Reason: Recheck today's complaints, Re-evaluation by your physician Discharge Instructions: - Discharge Summary Sheet laura - Corneal Abrasion laura - Corneal Abrasion, [id number] [facility] Forms: - Medication Reconciliation Form [facility] - Thank You Letter [facility] - Antibiotic Education [facility] - Prescription Opioid Use [facility] - Patient Portal Instructions [facility] - Leadership Thank You Letter [facility] Prescriptions: - acetaminophen-codeine 300-30 mg Oral tablet - take 2 tablet ORAL route every 6 hours; 20 tablet; Refills: 0, Product [facility] Selection Permitted - moxifloxacin 0.5 % Ophthalmic Drops, Viscous - instill 1 drop OPHTHALMIC route every 4-6 hours; 7.5 drop; Refills: 0, Product [facility] Selection Permitted - Bactrim DS 800-160 mg Oral Tablet - take 1 tablet ORAL route every 12 hours for 10 days; 20 tablet; Refills: 0, [facility] Product Selection Permitted Signatures: Valeriy Zhu MD MD cha Sims, Lauren RN RN ld1 Jerardo Infante [email or web address] Corrections: (The following items were deleted from the chart) 12:03 12:02 PSHx: None; ld1 ld1
[2023-11-12 13:37] VITALS: BP 155/91; TEMP 98; O2SAT 97
== END ==
LOC: ER 11:57
DX: S05.02XA Injury of conjunctiva and corneal abrasion without foreign body, left eye, initial encounter (principal); F17.210 Nicotine dependence, cigarettes, uncomplicated; F31.9 Bipolar disorder, unspecified
CPT/HCPCS: 99283